=== PATIENT | male | born 1955 | race Caucasian/White ===

== ENCOUNTER 2021-03-24 07:02 | Outpatient (REF) | payer BC, SELFPAY ==
[2021-03-24 11:24] LABS: Estimated Average Glucose 160 mg/dL; Hemoglobin A1c % 7.2 %
[2021-03-24 11:52] LABS: Alanine Aminotransferase 15 U/L (0-40); Albumin Level 4.5 g/dL (3.5-5.0); Alkaline Phosphatase 62 U/L (39-117); Anion Gap 13 (12-20); Aspartate Amino Transferase 15 U/L (5-37); Bilirubin Total 0.4 mg/dL (0.0-1.0); Blood Urea Nitrogen 16 mg/dL (9-16); Calcium 9.4 mg/dL (8.4-10.2); Carbon Dioxide 23 mmol/L (22-29); Chloride 106 mmol/L (96-108); Cholesterol 167 mg/dL; Estimated Glomerular Filt Rate > 60; Glucose Fasting 166 mg/dL (60-99); HDL Cholesterol 58 mg/dL; LDL Cholesterol Calculated 98 mg/dl; Potassium 4.2 mmol/L (3.3-5.1); Sodium 138 mmol/L (135-145); Total Protein 6.6 g/dL (6.5-8.0); Triglycerides 57 mg/dL
[2021-03-24 12:17] LABS: Prostate Specific Antigen Scr 1.77 ng/mL (<0.05-4.0); TSH reflex Free T4 0.62 uIU/mL (0.32-4.0)
== END 2021-03-24 07:03 | disposition home or self-care (01) ==
LOC: HO.WFDLDS 07:02
PROVIDERS: Visit Provider Nurse Practitioner Family
DX: Z12.5 Encounter for screening for malignant neoplasm of prostate (principal); E11.9 Type 2 diabetes mellitus without complications
CPT/HCPCS: 36415; 80053; 80061; 83036; 84153; 84443

== ENCOUNTER 2021-11-14 07:05 | Outpatient (REF) | payer BC, SELFPAY ==
[2021-11-14 11:43] LABS: Appearance Urine CLEAR; Color Urine YELLOW; Glucose Urine UA NEG (NEG); Leukocyte Esterase Urine NEG (NEG); Nitrite Urine NEG (NEG); Specific Gravity - Urine <= 1.005 (1.005-1.025); Urine Blood NEG (NEG); Urine Ketones NEG (NEG); Urine Protein NEG (NEG-TRACE)
[2021-11-14 11:49] LABS: Estimated Average Glucose 200 mg/dL; Hemoglobin A1c % 8.6 %
[2021-11-14 12:10] LABS: Alanine Aminotransferase 16 U/L (0-40); Albumin Level 4.5 g/dL (3.5-5.0); Alkaline Phosphatase 65 U/L (39-117); Anion Gap 14 (12-20); Aspartate Amino Transferase 17 U/L (5-37); Bilirubin Total 0.7 mg/dL (0.0-1.0); Blood Urea Nitrogen 11 mg/dL (9-16); Calcium 9.4 mg/dL (8.4-10.2); Carbon Dioxide 24 mmol/L (22-29); Chloride 101 mmol/L (96-108); Cholesterol 176 mg/dL; Estimated Glomerular Filt Rate > 60; Glucose Fasting 181 mg/dL (60-99); HDL Cholesterol 62 mg/dL; LDL Cholesterol Calculated 98 mg/dl; Potassium 4.5 mmol/L (3.3-5.1); Sodium 134 mmol/L (135-145); Total Protein 6.8 g/dL (6.5-8.0); Triglycerides 81 mg/dL
[2021-11-14 12:12] LABS: TSH reflex Free T4 0.61 uIU/mL (0.32-4.0)
[2021-11-14 12:17] LABS: Creatinine Urine 44.81 mg/dL; Microalbumin Urine < 5.0 mg/L
== END 2021-11-14 07:06 | disposition home or self-care (01) ==
LOC: HO.WFDLDS 07:05
PROVIDERS: Visit Provider Nurse Practitioner Family
DX: Z00.00 Encounter for general adult medical examination without abnormal findings (principal); E11.9 Type 2 diabetes mellitus without complications
CPT/HCPCS: 36415; 80053; 80061; 81003; 82043; 83036; 84443

== ENCOUNTER 2022-05-19 07:16 | Outpatient (REF) | payer BC, SELFPAY ==
[2022-05-19 11:44] LABS: Appearance Urine CLEAR; Color Urine YELLOW; Glucose Urine UA NEG (NEG); Leukocyte Esterase Urine NEG (NEG); Nitrite Urine NEG (NEG); Urine Blood NEG (NEG); Urine Ketones NEG (NEG); Urine Protein NEG (NEG-TRACE)
[2022-05-19 11:58] LABS: Estimated Average Glucose 157 mg/dL; Hemoglobin A1c % 7.1 %
[2022-05-19 12:07] LABS: Alanine Aminotransferase 13 U/L (0-40); Albumin Level 4.6 g/dL (3.5-5.0); Alkaline Phosphatase 60 U/L (39-117); Anion Gap 15 (12-20); Aspartate Amino Transferase 14 U/L (5-37); Bilirubin Total 0.5 mg/dL (0.0-1.0); Blood Urea Nitrogen 11 mg/dL (9-16); Calcium 9.4 mg/dL (8.4-10.2); Carbon Dioxide 25 mmol/L (22-29); Chloride 101 mmol/L (96-108); Cholesterol 170 mg/dL; Estimated Glomerular Filt Rate > 60; Glucose Fasting 213 mg/dL (60-99); HDL Cholesterol 72 mg/dL; LDL Cholesterol Calculated 82 mg/dl; Potassium 4.3 mmol/L (3.3-5.1); Sodium 137 mmol/L (135-145); Triglycerides 83 mg/dL
[2022-05-19 12:27] LABS: Prostate Specific Antigen Scr 1.73 ng/mL (<0.05-4.0); TSH reflex Free T4 0.59 uIU/mL (0.32-4.0)
== END 2022-05-19 07:17 | disposition home or self-care (01) ==
LOC: HO.WFDLDS 07:16
PROVIDERS: Visit Provider Nurse Practitioner Family
DX: E11.9 Type 2 diabetes mellitus without complications (principal); Z12.5 Encounter for screening for malignant neoplasm of prostate
CPT/HCPCS: 36415; 80053; 80061; 81003; 83036; 84153; 84443

== ENCOUNTER 2023-02-26 07:03 | Outpatient (REF) | payer BC, SELFPAY ==
[2023-02-26 11:21] LABS: MANUAL DIFF FLAG NO
[2023-02-26 12:02] LABS: Basophils Percent Auto 0.8 % (0-2); Eosinophils Absolute Auto 0.1 X10*3/uL (0.0-0.4); Eosinophils Percent Auto 2.4 % (0-4); Hemoglobin 13.5 g/dl (14.0-18.0); Imm Gran Abs Auto 0.02 X10*3/uL (0.00-0.03); Imm Gran Pct Auto 0.4 % (0.0-0.4); Lymphocytes Percent Auto 19.9 % (20-40); Mean Corpuscular HGB Conc 32.9 g/dl (31.0-36.0); Mean Corpuscular Hemoglobin 28.4 pg (27.0-33.0); Mean Corpuscular Volume 86.1 fL (80.0-98.0); Mean Platelet Volume 11.9 fL (9.4-12.4); Monocytes Absolute Auto 0.4 X10*3/uL (0.1-1.2); Monocytes Percent Auto 8.7 % (2-11); Neutrophils Absolute Auto 3.4 x10*3/uL (2.0-8.3); Neutrophils Percent Auto 67.8 % (45-73); Platelet Count 278 X10*3/uL (160-400); Red Blood Count 4.76 X10*6/uL (4.60-5.80); Red Cell Distribution Width 12.9 % (11.0-16.0); White Blood Count 5.1 X10*3/uL (4.8-10.8)
[2023-02-26 12:19] LABS: Estimated Average Glucose 186 mg/dL; Hemoglobin A1c % 8.1 %
[2023-02-26 13:02] LABS: Alanine Aminotransferase 11 U/L (0-40); Albumin Level 4.6 g/dL (3.5-5.0); Alkaline Phosphatase 69 U/L (39-117); Anion Gap 14 (12-20); Aspartate Amino Transferase 15 U/L (5-37); Bilirubin Total 0.5 mg/dL (0.0-1.0); Blood Urea Nitrogen 14 mg/dL (9-16); Calcium 9.6 mg/dL (8.4-10.2); Carbon Dioxide 26 mmol/L (22-29); Chloride 102 mmol/L (96-108); Cholesterol 181 mg/dL; Estimated Glomerular Filt Rate > 60; Glucose Fasting 167 mg/dL (60-99); HDL Cholesterol 63 mg/dL; LDL Cholesterol Calculated 105 mg/dl; Potassium 4.5 mmol/L (3.3-5.1); Sodium 137 mmol/L (135-145); Total Protein 6.9 g/dL (6.5-8.0); Triglycerides 65 mg/dL
[2023-02-26 13:04] LABS: TSH reflex Free T4 0.69 uIU/mL (0.32-4.0)
== END 2023-02-26 07:04 | disposition home or self-care (01) ==
LOC: HO.WFDLDS 07:03
PROVIDERS: Visit Provider Nurse Practitioner Family
DX: E11.9 Type 2 diabetes mellitus without complications (principal)
CPT/HCPCS: 36415; 80053; 80061; 83036; 84443; 85025

== ENCOUNTER 2023-03-10 10:59 | Outpatient (REF) | payer MEDICARE, SELFPAY ==
[2023-03-10 13:55] LABS: MANUAL DIFF FLAG NO
[2023-03-10 14:01] LABS: Appearance Urine Clear; Color Urine Yellow; Glucose Urine UA >=1000 mg/dL (Negative); Leukocyte Esterase Urine Negative (Negative); Nitrite Urine Negative (Negative); Specific Gravity - Urine >= 1.030 (1.005-1.025); UMIC TRIGGER UACC YES; Urine Blood Negative (Negative); Urine Ketones Trace mg/dL (Negative); Urine Protein Negative (Neg-Trace)
[2023-03-10 14:04] LABS: Bacteria Urine None Seen (None Seen); Hyaline Casts Urine 0-2 /LPF (0-2); RBC Urine 0-2 /HPF (0-2); Squamous Epithelial Cell Urine 0-2 /HPF (0-2); WBC Urine 0-5 /HPF (0-5)
[2023-03-10 14:24] LABS: Basophils Percent Auto 0.4 % (0-2); Eosinophils Absolute Auto 0.1 X10*3/uL (0.0-0.4); Eosinophils Percent Auto 0.6 % (0-4); Hematocrit 42.3 % (42.0-52.0); Imm Gran Abs Auto 0.13 X10*3/uL (0.00-0.03); Imm Gran Pct Auto 1.4 % (0.0-0.4); Immature Retic Fraction 9.4 % (2.3-13.4); Lymphocytes Percent Auto 10.7 % (20-40); Mean Corpuscular HGB Conc 33.1 g/dl (31.0-36.0); Mean Corpuscular Hemoglobin 27.7 pg (27.0-33.0); Mean Corpuscular Volume 83.8 fL (80.0-98.0); Mean Platelet Volume 11.4 fL (9.4-12.4); Monocytes Absolute Auto 0.7 X10*3/uL (0.1-1.2); Monocytes Percent Auto 7.6 % (2-11); Neutrophils Absolute Auto 7.5 x10*3/uL (2.0-8.3); Neutrophils Percent Auto 79.3 % (45-73); Platelet Count 335 X10*3/uL (160-400); Red Blood Count 5.05 X10*6/uL (4.60-5.80); Retic HGB Equivalent 34.7 pg (30.0-35.0); Reticulocyte Percent 1.4 % (0.5-1.8); White Blood Count 9.4 X10*3/uL (4.8-10.8)
[2023-03-10 15:12] LABS: Creatinine Urine 107.78 mg/dL; Microalbum/Creatinine Ratio Ur 15.7 ug/mg cr
[2023-03-10 15:16] LABS: Iron 117 mcg/dL (45-160); Percent Iron Saturation 35 % (15-50); Total Iron Binding Capacity 336 mcg/dL (228-428); Unsaturated Iron Binding 219 ug/dL
[2023-03-10 15:40] LABS: Ferritin 174 ng/mL (20-250); Folate 16.3 ng/mL (> or = 4.0); Vitamin B12 347 pg/mL (200-900)
[2023-03-11 12:57] LABS: Erythropoietin (EPO) 4.2 mIU/mL (2.6-18.5)
== END 2023-03-10 11:00 | disposition home or self-care (01) ==
LOC: HO.HMGCLDS 10:59
PROVIDERS: PCP Nurse Practitioner Family; Visit Provider Nurse Practitioner Family
DX: E11.9 Type 2 diabetes mellitus without complications (principal); D64.9 Anemia, unspecified
CPT/HCPCS: 36415; 81001; 81003; 82043; 82607; 82668; 82728; 82746; 83540; 85025; 85045

== ENCOUNTER 2023-04-15 08:29 | Outpatient (REF) | payer MEDICARE, SELFPAY ==
--- NOTE | ~2023-04-15 | MR_ITS ---
EXAMINATION: MR CERVICAL SPINE WITHOUT CONTRAST CLINICAL INFORMATION: Radiculopathy, cervical region. COMPARISON: None available. TECHNIQUE: MRI of the cervical spine was performed using routine sequences without contrast. FINDINGS: There is reversal of the normal cervical lordosis. Moderate disc height loss is seen at C5-C6 and C6-C7. The vertebral body heights are preserved. There is a prominent hemangioma at T2. Chronic opposing endplate Schmorl's nodes are seen at the C6-C7 level. The cervical cord signal appears normal. The imaged intracranial contents and extraspinal soft tissues appear normal. SPINAL LEVELS: C2-C3: No posterior disc abnormality. Moderate to severe left facet arthropathy. No spinal canal stenosis. Mild left neural foraminal stenosis. C3-C4: Mild disc bulging with mild to moderate facet arthropathy. Mild right and moderate left neural foraminal stenosis. No spinal canal stenosis. C4-C5: No posterior disc abnormality. No spinal canal or neural foraminal stenosis. C5-C6: Disc osteophyte complex with uncovertebral hypertrophy resulting in moderate spinal canal stenosis and severe bilateral neural foraminal stenosis. C6-C7: Disc bulging with uncovertebral hypertrophy resulting in mild spinal canal stenosis and moderate to severe left and mild right neural foraminal stenosis. C7-T1: No posterior disc abnormality. No spinal canal or neural foraminal stenosis. MR/MR cervical spine wo con IMPRESSION: Multilevel degenerative spondylosis most advanced at C5-C6 where there is moderate spinal canal stenosis and severe bilateral neural foraminal stenosis. Neural foraminal stenosis appears moderate on the left at C3-C4 and moderate to severe on the left at C6-C7.
== END 2023-04-15 08:30 | disposition home or self-care (01) ==
LOC: HO.MRI 08:29
PROVIDERS: PCP Nurse Practitioner Family; Visit Provider Nurse Practitioner Family
DX: M54.12 Radiculopathy, cervical region (principal)
CPT/HCPCS: 72141

== ENCOUNTER → 2023-05-20 09:55 | Outpatient (BNVA) | payer MEDICARE, SELFPAY | PROVIDERS: PCP Nurse Practitioner Family; Visit Provider Physician Assistant | DX: M54.12 Radiculopathy, cervical region (principal) | CPT/HCPCS: 99202 ==

== ENCOUNTER 2023-07-19 07:00 | Outpatient (RCR) | payer MEDICARE, SELFPAY ==
[2023-06-07 07:04] VITALS: BP 142/80; PULSE 83; O2SAT 98
--- NOTE | 2023-06-07 15:56 | MHC.PT.EP ---
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 Pt expressed initially was seen in the emergency department and later by walk-in provider 03/21 and then his PCP Kp Ortez NP. Pt's PCP referred him to the [facility]. Pt had MRI on 04/15/23 and was seen for consult [facility] on 05/20/23. Pt expressing since onset sx in the R UE have somewhat improved (initially reports sx were so severe he was forced to sleeping in his recliner) continues to express decreased tolerance for sitting, moving R UE with report of radicular sx radiating to his R hand, digits 1-3 consistent with C5/C6 C6/C7 distribution. Pt exhibits decreased cervical AROM, (+) cervical quadrant testing, mildly impaired strength R shoulder ER. Pt expressing he has worsening sx with sitting postures. MRI MR/MR cervical spine wo c IMPRESSION: Multilevel degenerative spondylosis most advanced at C5-C6 where there is moderate spinal canal stenosis and severe bilateral neural foraminal stenosis. Neural foraminal stenosis appears moderate on the left at C3-C4 and moderate to severe on the left at C6-C7. Dictated By:TORY POLANCO MD Signed By:<Electronically signed by TORY POLANCO MD in OV>04/15/23 1156 Pt is an excellent rehab candidate for PT. Pt denies history of prior neck surgery, denies having any form of injections in the past. Pt PMH significant for HTN, DMII, anemia. Pt demonstrated a positive response to trial of manual C-tx (+) cervical quadrant testing, post initial evaluation this date and will be seen in the office 2x/weekly with treatment including, postural ther-ex/activity, manual therapy, taping/postural support strapping, TA, cervical traction, self-care/education and HEP. Post manual traction trial, pt expressed centralization of R UE sx from the hand to the height of his lateral shoulder. Upon sitting after completion of traction, R UE returned shortly afterwards . Pt was then trialed with a gentle ROCKTAPE application for (postural support/stretch with education goals/application/removal) which appeared effective early on in reducing and managing his sx. Pt was educated re: goals of therapy, findings of eval/exam, anatomy of the C/S, and goals of centralization/strengthening his postural musculature to manage his sx. Frequency and Duration: The patient will be seen 2x/week x 4 weeks Short Term Goals: 1. Centralize R UE sx to the height of lateral shoulder. 2. Reduce neck pain by 25%. 3. Improve cervical rotation by 20 degrees L>R. 4. Initiate home program/ self care for management of cervical radiculopathy/postural program. Alf Goals: 1. I HEP. 2. Restore functional mobility to the C/S without sx radiating UE/persicap sx. 3. Strength R UE 5/5 all planes. 4. Resume sleeping all positions MOD I. 5. Lift carry 15# in R UE with no surge of R UE sx. Treatment Plan: Modalities to reduce pain, spasms and effusion. Manual therapy to restore motion and function. Therapeutic exercise to improve strength and flexibility. Neuromuscular re-education for posture and balance. Therapeutic activities to return to functional activities of daily living. Electronically signed by: Becky Landaverde, PT, DPT Please sign and return to therapist. Thank you for your referral.
--- NOTE | 2023-06-14 07:28 | MHC.PT.EP ---
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 Pt expressed initially was seen in the emergency department and later by walk-in provider 03/21 and then his PCP Kp Ortez NP. Pt's PCP referred him to the [facility]. Pt had MRI on 04/15/23 and was seen for consult [facility] on 05/20/23. Pt expressing since onset sx in the R UE have somewhat improved (initially reports sx were so severe he was forced to sleeping in his recliner) continues to express decreased tolerance for sitting, moving R UE with report of radicular sx radiating to his R hand, digits 1-3 consistent with C5/C6 C6/C7 distribution. Pt exhibits decreased cervical AROM, (+) cervical quadrant testing, mildly impaired strength R shoulder ER. Pt expressing he has worsening sx with sitting postures. MRI MR/MR cervical spine wo c IMPRESSION: Multilevel degenerative spondylosis most advanced at C5-C6 where there is moderate spinal canal stenosis and severe bilateral neural foraminal stenosis. Neural foraminal stenosis appears moderate on the left at C3-C4 and moderate to severe on the left at C6-C7. Dictated By:TORY POLANCO MD Signed By:<Electronically signed by TORY POLANCO MD in OV>04/15/23 1156 Pt is an excellent rehab candidate for PT. Pt denies history of prior neck surgery, denies having any form of injections in the past. Pt PMH significant for HTN, DMII, anemia. Pt demonstrated a positive response to trial of manual C-tx (+) cervical quadrant testing, post initial evaluation this date and will be seen in the office 2x/weekly with treatment including, postural ther-ex/activity, manual therapy, taping/postural support strapping, TA, cervical traction, self-care/education and HEP. Post manual traction trial, pt expressed centralization of R UE sx from the hand to the height of his lateral shoulder. Upon sitting after completion of traction, R UE returned shortly afterwards . Pt was then trialed with a gentle ROCKTAPE application for (postural support/stretch with education goals/application/removal) which appeared effective early on in reducing and managing his sx. Pt was educated re: goals of therapy, findings of eval/exam, anatomy of the C/S, and goals of centralization/strengthening his postural musculature to manage his sx. Frequency and Duration: The patient will be seen 2x/week x 4 weeks Short Term Goals: 1. Centralize R UE sx to the height of lateral shoulder. 2. Reduce neck pain by 25%. 3. Improve cervical rotation by 20 degrees L>R. 4. Initiate home program/ self care for management of cervical radiculopathy/postural program. Mcfp Goals: 1. I HEP. 2. Restore functional mobility to the C/S without sx radiating UE/persicap sx. 3. Strength R UE 5/5 all planes. 4. Resume sleeping all positions MOD I. 5. Lift carry 15# in R UE with no surge of R UE sx. Treatment Plan: Modalities to reduce pain, spasms and effusion. Manual therapy to restore motion and function. Therapeutic exercise to improve strength and flexibility. Neuromuscular re-education for posture and balance. Therapeutic activities to return to functional activities of daily living. Electronically signed by: Becky Landaverde, PT, DPT Please sign and return to therapist. Thank you for your referral.
--- NOTE | 2023-07-16 09:35 | MHC.PT.RE ---
[facility] [place] Office [place] Office [place] Office [address] Camron Mathews 140 [facility] [phone] F: [phone] F: [phone] F: [phone] F: [phone] Physical Therapy Re-evaluation Diagnosis: Cervical radiculopathy: PT eval and treat; Jens Figueroa PA-C, date of referral 05/20/23 ([facility]) Date of Surgery: Date of Evaluation: 06/07/23 Treatments to Date: Cancellations to Date: No Shows to Date: Subjective: I feel like my symptoms are leveling out. I still get the pain in my forearm and after last session my neck was sore for a few days (had increased from 20 minutes of traction to 25) Pain Score: Pain Location: Objective Measures: Cervical flexion AROM: 38 degrees, cervical extension 45 degrees, L cervical rotation 68 degrees, R cervical rotation 72 degrees, L SB 24 degrees, R SB 12 degrees (sx present down forearm) [facility] [address] [place] [address] [address] [place] [address] [facility] Visit Report Signed Patient: Alejandro Perez RMR#: [id number] : [id number]:[id number] Age/Sex: 67 / MADM/SER Date: 05/20/23 Loc: HO.HNSADM/SER Time:954 Attending Provider: Jens MAY cc: Kp OrtezP-~ Intake Intake Visit Reasons: Spinal stenosis Intake Note: Mr. Perez is here today c/o neck pain. MRI done @ [facility]. 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 He is a very nice 67-year-old gentleman who experienced acute onset of neck discomfort initial in the left side that eventually went to the right side started going down his arm into his thumb, index and middle finger sometime in early January in February. It was quite intense in the beginning, he went to the emergency room and then to the walk-in clinic in [place]. Was placed on steroids, Tylenol, tramadol, anti-inflammatories along the way. The pain seems to have her side is somewhat but he still having pain down into his right arm. He has not yet done any physical therapy. He has not had any cortisone shots. He is here today to see us with an MRI showing degenerative disc disease with foraminal narrowing. PMH: He is diabetic his last A1c was 8.1, hypertension, anemia Social hx: He does not smoke Medications: Diltiazem, lisinopril, meloxicam, metformin, pioglitazone, rosuvastatin, tramadol Allergies: None Physical exam: He is awake alert oriented, maybe has some mild right hand weakness but otherwise strength and reflexes are normal. Imaging review: Cervical MRI done at [place] shows multilevel degenerative disc disease with basically 2 degenerative discs at C5-6 and C6-7. At C5-6 there is bilateral moderate to severe foraminal narrowing. At C6-7 the report suggests there some left C6-7 foraminal narrowing but I think it is fairly mild. No cord compression. Impression: 67-year-old male presents with what sounds like a right C6 radiculopathy secondary to the degenerative disc disease and foraminal stenosis at C5-6. He has started conservative treatment, but will need dedicated 6 weeks of physical therapy before we can consider any surgical discussion. I will send him for physical therapy, I would like to re-evaluate him in about 3 months. Most of the time these symptoms will go away on their own, but if after PT he is no better I will discuss with Dr. Jeffery about if the patient is a candidate for anterior cervical diskectomy and fusion. Thank you for allowing us to care for your patient. The total time spent with this visit with this patient was 45 minutes reviewing history, physical exam, cervical spine imaging review, and implementation of treatment plan or further diagnostic testing Jens Jeffery MD,PhD [facility] Orders: Orders PT Evaluation and Treatment Today M54.12 - Radiculopathy, cervical region Coding Level of Care Code New Pt Level 4 (23455) Diagnoses Cervical radiculopathy M54.12 Documented By:Jens Figueroa05/20/23 1045 Signed By:<Electronically signed by Jens Figueroa>05/20/23 1120 Assessment: 07/16/23: Pt expresses increased soreness at site of C/S with increase in traction time last session (we had increased hold time from 20 minutes to 25 minutes). Alejandro has expressed reduction in the frequency and intensity of his radiating R UE sx overall since start of care. He continues to express presence of sx with seated positions (such as driving >15 minutes) radiating in general consistently to his forearm, less often to his thumb and pointer finger. He states he is now able to sleep on his back and no longer has radiating periscap sx. He expresses overall 75% gain in his sx since starting and has improved his cervical ROM. He has begun to plateau in presence/relief/centralization with the traction. He expresses scheduled appt to see his PCP Kp Ortez week of 08/01/23 and has a follow up with Mr. Henry PA-C at [facility] end of July. Pt has expressed some gains with PT. He is now able to sleep in supine with improvement. He has immediate relief of sx with active change in position of his shoulder> abd 90. 07/09/12: Pt has attended 10 session of PT to date expressing about 75% improvement in radiating R UE sx. Pt has demonstrated improvement in AROM of C/S and centralization of R UE radiating sx with intensity and frequency reported. Pt has a follow up with PCP on 08/04/23 and with specialist physician on 08/22/23. Pt would benefit from an additional 6 visits of PT to address impairments, implement HEP of periscap and cervical musculature, to further centralize R UE sx. Pt continues to express presence of R UE radiating sx with prolonged walking, sitting and driving mainly to height of forearm with occasional sx to 1-2 digits. He has been expressing a positive response to cervical traction treatment at a frequency of 2x/week; and I am recommending continued treatment for three additional weeks beyond his initial authorization to address ongoing STG/LTG see updates below. Pt was trialed with standing rows with 5# weight which triggered radiating sx. He is now able to find positions which improve his sx such as shoulder ER/abd and L cervical sidebending. Please see updated ROM measurements to support improvement/functional advancements. He is now able to dress and raise his UE without trigger of R UE radiating sx. He has expressed majority of sx radiating to forearm with thumb and pointer finger. 07/05/23: Pt expressing improved tolerance for sitting posture with reduction in sx verbalized. 07/02/23 Pt expressing improved tolerance for sitting/driving positions. 06/28/23;Positive response to introduction of standing corner/doorway stretch. Some relief of neck pain verbalized post traction. Pt reports yesterday sx surged with sitting, encouraged trial of lumbar roll behind his back for sitting , improve postural awareness. 06/25/23: Pt expressing greatest relief with positional traction. Some mild discomfort initially reported with attempt of SL ER, improved post adjustment of the C/S. 06/28/23;Positive response to introduction of standing corner/doorway stretch. Some relief of neck pain verbalized post traction. Pt reports yesterday sx surged with sitting, encouraged trial of lumbar roll behind his back for sitting , improve postural awareness. 06/21/23: Poor tolerance for pec minor stretch this date (increased R scapular sx). Positive response for C-tx with centralization of sx noted. 06/18/23: Pt expressing centralization of sx in the height of R wrist, improve tolerance for band work in standing position vs supine. Completed traction 18# pressure. Added standing ER with RTB for HEP program. 06/14/23: Good tolerance for postural therex with bands added, reports mild sx into the wrist this am. Increased traction hold to 20 minutes with positive response. Pt expressing positive response to the taping- pt requests it again today. Issued RTB for home program. 06/10/23: Pt expressing positive response to early taping trial. Pt expressing some slight reduction in cervical traction treatment with a trial this date. Pt had to leave 7:45 am for work. Pt to be progressed in postural strengthening next session. Issue R UT/levator scap stretches next session. 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 Pt expressed initially was seen in the emergency department and later by walk-in provider 03/21 and then his PCP Kp Ortez NP. Pt's PCP referred him to the [facility]. Pt had MRI on 04/15/23 and was seen for consult [facility] on 05/20/23. Pt expressing since onset sx in the R UE have somewhat improved (initially reports sx were so severe he was forced to sleeping in his recliner) continues to express decreased tolerance for sitting, moving R UE with report of radicular sx radiating to his R hand, digits 1-3 consistent with C5/C6 C6/C7 distribution. Pt exhibits decreased cervical AROM, (+) cervical quadrant testing, mildly impaired strength R shoulder ER. Pt expressing he has worsening sx with sitting postures. MRI MR/MR cervical spine wo c IMPRESSION: Multilevel degenerative spondylosis most advanced at C5-C6 where there is moderate spinal canal stenosis and severe bilateral neural foraminal stenosis. Neural foraminal stenosis appears moderate on the left at C3-C4 and moderate to severe on the left at C6-C7. Dictated By:TORY POLANCO MD Signed By:<Electronically signed by TORY POLANCO MD in OV>04/15/23 1156 Pt is an excellent rehab candidate for PT. Pt denies history of prior neck surgery, denies having any form of injections in the past. Pt PMH significant for HTN, DMII, anemia. Pt demonstrated a positive response to trial of manual C-tx (+) cervical quadrant testing, post initial evaluation this date and will be seen in the office 2x/weekly with treatment including, postural ther-ex/activity, manual therapy, taping/postural support strapping, TA, cervical traction, self-care/education and HEP. Post manual traction trial, pt expressed centralization of R UE sx from the hand to the height of his lateral shoulder. Upon sitting after completion of traction, R UE returned shortly afterwards . Pt was then trialed with a gentle ROCKTAPE application for (postural support/stretch with education goals/application/removal) which appeared effective early on in reducing and managing his sx. Pt was educated re: goals of therapy, findings of eval/exam, anatomy of the C/S, and goals of centralization/strengthening his postural musculature to manage his sx. Short Term Goals: 1. Centralize R UE sx to the height of lateral shoulder. (07/09: Sx intensity frequency length improved, less than a few times per day). 2. Reduce neck pain by 25%. (MET) 3. Improve cervical rotation by 20 degrees L>R. (MET) 4. Initiate home program/ self care for management of cervical radiculopathy/postural program. (MET) Intermediate Goals: 1. I HEP. 2. Restore functional mobility to the C/S without sx radiating UE/persicap sx. 3. Strength R UE 5/5 all planes. (07/09: Continues to work on, sx triggered with standing row, etc) 4. Resume sleeping all positions MOD I. (MET) 5. Lift carry 15# in R UE with no surge of R UE sx. (improving sx) Frequency and Duration: The patient will be seen 2x/week x 4 weeks Treatment Plan: Therapeutic Exercise Dynamic Therapeutic Activities Neuromuscular Re-ed Manual Therapies Joint Mobilization Taping Gait Home Exercise Program Patient Education Electrical Stimulation Iontophoresis Mechanical Traction Hot or Cold Pack Other Reviewed/ Agreed with Student Documentation: Therapist: Electronically signed by: Please sign and return to therapist. Thank you for your referral.
== END 2023-11-16 11:01 | disposition home or self-care (01) ==
LOC: HO.PTWFD 07:00
PROVIDERS: PCP Nurse Practitioner Family; Visit Provider Physician Assistant
DX: M54.12 Radiculopathy, cervical region (principal)
CPT/HCPCS: 97012; 97110; 97140; 97161; 97162; 97164; 97535

== ENCOUNTER 2023-08-04 08:57 | Outpatient (AMB) | payer MEDICARE, SELFPAY ==
--- NOTE | 2023-08-04 09:03 | MHC.PC.OV ---
Vital Signs 08/04/23 09:04 08/04/23 09:29 Height 5 ft 11 in Weight 200 lb BMI 27.9 BP 158/96 H 142/76 H Blood Pressure Location Lt brachial Rt brachial Position Sitting Sitting Pulse 63 Pulse Source Pulse Oximeter Pulse Oximetry (%) 98 Oxygen Delivery Method Room Air Intake Visit Reasons: Annual PE Allergies No Known Allergies Allergy (Verified 08/04/23 09:06) Tobacco use date assessed: 08/04/23 Fall risk assessment: No Falls in past year Last assessed Fall Risk: 08/04/23 Dental Screening Dental Screen Date: 08/04/23 Did you have a dental visit in the last 12 months?: Yes Did you have a dental problem in the last 6 months where you did not have access to dental care?: No Was dental information given to patient?: Patient has dentist HPI Annual PE HPI Details Pt is here for a PE. Labs have been ordered, encouraged pt to have these drawn. Refuses any colon screen of any type. Due for PSA (refuses TEAGAN), will order. Denies dribbling with urination, weak stream, and nocturia. Pt is a diabetic, on an BACILIO and a statin. Last A1C was 8.1, due for repeat. Microalbumin is up to date. Denies polyuria, polydipsia, and neuropathy. Pt denies any signs and symptoms of hypoglycemia and does know how to correct it. Pt reports that his blood sugar yesterday was 153. Eye exam is up to date. HTN: Blood pressure is elevated today. Pt reports intermittently checking his blood pressure at home though he does not remember any readings. Will have pt continue to monitor BP at home (girlfriend/ takes BP) and call me if it is high (above 140/90). Denies chest pain, shortness of breath, headache, dizziness, and blurred vision. Refuses pneumonia vaccines. [facility] Surgical History History of cataract surgery Family History Father COPD (chronic obstructive pulmonary disease) Mother Cancer Brother Liver cancer Sister Breast cancer Son No problems noted. Daughter No problems noted. Social History Housing: Other Patient Tobacco Use Status: Never used Tobacco e-Cigarette/Vaping Use: Never Used Second Hand Smoke Exposure: No service: No Current occupational status: retired Cognitive needs: No Hearing needs: No Vision needs: No Questionnaire Thrive Questionnaire Date Thrive assessed: 03/18/22 SAMANTHA-7 AMB Questionnaire SAMANTHA-7 Date SAMANTHA - 7 assessed: 03/18/22 Source: Developed by Drs. Gonzalo Calvillo, Taty Dang, Rich Cherry and colleagues, with an educational brittany from [employer]. Review of Systems Const Denies chills and Denies fever(s) Eyes Denies blurry vision ENT Denies vertigo, Denies dizziness and Denies sore throat Card Denies chest pain at rest, Denies chest pain with activity, Denies diaphoresis, Denies dyspnea and Denies dyspnea on exertion Resp Denies cough, Denies dyspnea, Denies dyspnea on exertion and Denies wheezing GI Denies abdominal pain, Denies melena, Denies hematochezia, Denies constipation, Denies diarrhea and Denies loose stools Denies hematuria Musc Denies numbness and Denies tingling Skin/Breast Denies lesions Neuro Denies vertigo, Denies dizziness, Denies numbness and Denies tingling Psych Denies anxiety, Denies depression, Denies homicidal ideation, Denies suicidal ideation and Denies other (substance abuse) Aller/Immun Denies wheezing Physical exam (Primary Care) Vital Signs: Last Vital Signs Pulse 63 08/04/23 09:04 BP 142/76 H 08/04/23 09:29 Pulse Ox 98 08/04/23 09:04 Oxygen Delivery Method Room Air 08/04/23 09:04 BMI result Body Mass Index 27.9 Tobacco/Smoking Status: Tobacco use Status Tobacco use date assessed 08/04/23 08/04/23 09:09 Patient Tobacco Use Status Never used Tobacco 08/04/23 09:09 e-Cigarette/Vaping Use Never Used 08/04/23 09:09 Thrive Assessment: Date of Thrive Assessment Date Thrive assessed 03/18/22 08/04/23 09:09 Const General: cooperative Nutritional Appearance: well nourished Orientation/consciousness: patient oriented x3 HENMT Head: Yes normal to inspection, Yes normocephalic and Yes atraumatic Ears: TM's normal bilaterally Eyes General: appearance normal, both eyes and all related structures Alignment and Position: alignment normal and position normal Neck Neck: Yes normal visual inspection and Yes no lymphadenopathy Thyroid: Thyroid normal Resp Effort & Inspection: normal respiratory effort Auscultation: clear to auscultation bilaterally Cardio Rate: regular rate Rhythm: regular rhythm Heart sounds: S1 normal heart sound present, S2 normal heart sound present and no murmurs GI Palpation (GI): Soft to palpation and nontender Auscultation: normal bowel sounds Other: refused TEAGAN Male General Exam: Yes normal external exam Penis: normal penis Scrotum: scrotum normal, testes descended bilaterally and no inguinal hernias Testes: no testicular mass Skin Rashes: no rashes Neuro General: patient oriented x3, moves all extremities, no focal motor deficits and deep tendon reflexes 2+ bilaterally Romberg Test: Negative Extrem Other: bilat feet: + sensation with use of monofilament, feet intact without lesions Psych Appearance: grossly normal Mental Status: mental status grossly normal Speech and movement: Normal speech and movement present Affect: normal affect Attitude: cooperative Thought process: Normal thought process present Thought content: Normal thought content present Insight: Good insight present (Psych) Judgement: Good judgement present (Psych) Assessment and Plan Assessment & Plan (1) Diabetes: Code(s): E11.9 - Type 2 diabetes mellitus without complications (2) Physical exam: Code(s): Z00.00 - Encounter for general adult medical examination without abnormal findings Plan The patient agreed to the use of a medical records library professor for this encounter. Scribed for JOSE Simms by Janny Vega medical records library professor, on 08/04/2023 at 09:15 EST. Coding Level of Care Code Est Pt Prev Care >65y(51587) Diagnoses Diabetes E11.9 Physical exam Z00.00
[2023-08-04 09:04] VITALS: BP 158/96; PULSE 63; O2SAT 98; BMI 27.9
[2023-08-04 09:29] VITALS: BP 142/76
== END 2023-08-04 09:53 | disposition home or self-care (01) ==
PROVIDERS: Visit Provider Nurse Practitioner Family
DX: E11.9 Type 2 diabetes mellitus without complications (principal); Z00.00 Encounter for general adult medical examination without abnormal findings
CPT/HCPCS: 99397

== ENCOUNTER 2023-08-27 13:36 | Outpatient (AMB) | payer MEDICARE, SELFPAY ==
--- NOTE | 2023-08-27 13:42 | A.SPINEOV_ITS ---
Intake Intake Visit Reasons: 3 month f/u after PT Intake Note: Mr. Perez is here today for his 3 month follow after PT. Lead Web Developer Required: No Allergies No Known Allergies Allergy (Verified 08/04/23 09:06) Assessment & Plan Assessment & Plan (1) Cervical radiculopathy: Comment: Alejandro comes in today for a follow-up appointment after seeing YADIRA Figueroa regarding a right-sided C6 radiculopathy. To recap Mr. Perez has moderate-severe degenerative disc disease most predominant between C5-6 and C6-7 as seen on MRI completed at [place]. His symptoms are almost entirely in the right upper extremity affecting his right arm causing numbness in the upper and lower portion of his left extremity, with some associated weakness in the index finger and thumb. He also endorses fairly significant posterior neck pain that is both on the right and left side, without any radiation to the left side. YADIRA Figueroa previously sent Alejandro to physical therapy and want him to follow-up today to recap his progress with physical therapy. Unfortunately he has had very little progress since going to physical therapy and feels that although he did have some minor relief from the stretching exercises, he finds himself today in the same position that he was in last time he was seen in our office. After extensive discussion Alejandro reported that he would prefer not to have surgery if he can avoid it. He brought up the possibility of cortisone injections, and we discussed having him referred to pain management for TFE injection. Alejandro was referred to Dr. Jensen at [facility] [place]. He was encouraged to call our office in the future if he decides to reconsider a surgical solution for his radiculopathy. Total amount of time spent in this visit was 20 minutes in discussion of symptoms, MRI cervical spine imaging results and subsequent plan of care / pain management referral. Erick Jeffery MD,PhD [facility] Code(s): M54.12 - Radiculopathy, cervical region Orders: Referrals Pain Management Referral M54.12 - Radiculopathy, cervical region Coding Level of Care Code Est Pt Level 3 (74265) Diagnoses Cervical radiculopathy M54.12
== END 2023-08-27 13:53 | disposition home or self-care (01) ==
PROVIDERS: PCP Nurse Practitioner Family; Visit Provider Physician Assistant
DX: M54.12 Radiculopathy, cervical region (principal)
CPT/HCPCS: 99213

== ENCOUNTER → 2023-08-27 13:36 | Outpatient (BNVA) | payer MEDICARE, SELFPAY | PROVIDERS: PCP Nurse Practitioner Family; Visit Provider Physician Assistant | DX: M54.12 Radiculopathy, cervical region (principal) | CPT/HCPCS: 99212 ==

== ENCOUNTER 2023-09-24 10:04 | Outpatient (AMB) | payer MEDICARE, SELFPAY ==
[2023-09-24 10:12] VITALS: BP 171/86; PULSE 68; RESP 14; O2SAT 99; BMI 27.6
--- NOTE | 2023-09-24 10:12 | A.OFFVIS_ITS ---
Intake Vital Signs 09/24/23 10:12 Height 5 ft 11 in Weight 198 lb BMI 27.6 BP 171/86 H Blood Pressure Location Rt brachial Position Sitting Respiration 14 Pulse 68 Pulse Source Pulse Oximeter Pulse Oximetry (%) 99 Oxygen Delivery Method Room Air Intake Visit Reasons: Radiculopathy, Cervical Region/confirmed Allergies No Known Allergies Allergy (Verified 09/24/23 10:13) Medication List - Last Reconciled 09/24/23 by Angelina Manzanares LPN alcohol swabs 1 pad topical BID 60 days blood sugar diagnostic ([employer] Ultra Test strips) Use to check blood sugar twice daily: once fasting in am and random during day blood-glucose meter ([employer] Ultra2 Meter) Use to check blood sugar twice daily: once fasting in am and random during day diltiazem HCl (Cartia XT) 240 mg PO DAILY lancets ([employer] Delica Lancets) Use to check blood sugar twice daily: once fasting in am and random during day lisinopril 40 mg PO DAILY 90 days meloxicam 15 mg PO DAILY PRN 14 days metformin 1,000 mg PO BID 90 days pioglitazone 30 mg PO DAILY 90 days rosuvastatin 5 mg PO DAILY vitamin B complex (B Complex-Vitamin B12 tablet) 1 tab PO DAILY HPI Radiculopathy, Cervical Region/confirmed HPI Details 68-year-old male who presents today to t he office for a cervical radiculopathy. The patient reports posterior neck pain bilaterally. His symptoms are localized in the right upper extremity, affecting his right arm and causing numbness in the upper and lower portions of his left extremity, with some associated weakness in the index finger and thumb. He rates his pain at 8/10 in intensity. He states that after physical therapy, his pain got constant at 4-5/10 in intensity and has not improved beyond that point despite six months of PT. He states that his initial neck discomfort was on the left side that eventually went to the right side and radiates down his arm into his thumb, index finger, and middle finger, which started about six months ago. He was seen in the walk- in clinic and was placed on steroids, Tylenol, tramadol, and anti-inflammatory medications with minimal benefit. He has not had any cortisone shots. [facility] Surgical History History of cataract surgery Family History Father COPD (chronic obstructive pulmonary disease) Mother Cancer Brother Liver cancer Sister Breast cancer Son No problems noted. Daughter No problems noted. Social History Housing: Other Patient Tobacco Use Status: Never used Tobacco e-Cigarette/Vaping Use: Never Used Second Hand Smoke Exposure: No service: No Current occupational status: retired Cognitive needs: No Hearing needs: No Vision needs: No Review of Systems Const All systems reviewed & are unremarkable except as noted in HPI and below Physical Exam Vital Signs: Last Vital Signs Pulse 68 09/24/23 10:12 Resp 14 09/24/23 10:12 BP 171/86 H 09/24/23 10:12 Pulse Ox 99 09/24/23 10:12 Oxygen Delivery Method Room Air 09/24/23 10:12 BMI result Body Mass Index 27.6 General: Appears afebrile. Alert and oriented. Mood and affect appropriate. Follows and participates in conversation appropriately. Respiratory effort is unlabored. Able to transition from sit to stand unassisted. Ambulates with bilaterally normal heel strike and toe off. Results Reviewed Results Reviewed: 04/15/23: MR CERVICAL SPINE WITHOUT CONTRAST FINDINGS: There is reversal of the normal cervical lordosis. Moderate disc height loss is seen at C5-C6 and C6-C7. The vertebral body heights are preserved. There is a prominent hemangioma at T2. Chronic opposing endplate Schmorl's nodes are seen at the C6-C7 level. The cervical cord signal appears normal. The imaged intracranial contents and extraspinal soft tissues appear normal. SPINAL LEVELS: C2-C3: No posterior disc abnormality. Moderate to severe left facet arthropathy. No spinal canal stenosis. Mild left neural foraminal stenosis. C3-C4: Mild disc bulging with mild to moderate facet arthropathy. Mild right and moderate left neural foraminal stenosis. No spinal canal stenosis. C4-C5: No posterior disc abnormality. No spinal canal or neural foraminal stenosis. C5-C6: Disc osteophyte complex with uncovertebral hypertrophy resulting in mod erate spinal canal stenosis and severe bilateral neural foraminal stenosis. C6-C7: Disc bulging with uncovertebral hypertrophy resulting in mild spinal canal stenosis and moderate to severe left and mild right neural foraminal stenosis. C7-T1: No posterior disc abnormality. No spinal canal or neural foraminal stenosis. IMPRESSION: Multilevel degenerative spondylosis most advanced at C5-C6 where there is moderate spinal canal stenosis and severe bilateral neural foraminal stenosis. Neural foraminal stenosis appears moderate on the left at C3-C4 and moderate to severe on the left at C6-C7. Assessment & Plan Assessment & Plan (1) Cervical radiculopathy: Code(s): M54.12 - Radiculopathy, cervical region Plan Will schedule him for right parasagittal interlaminar GERRY at C7-T1. Discussed the risks and benefits of the procedure with the patient in detail. All questions were answered. The patient is on board with the plan. The patient will continue to perform exercises and he will need to monitor glucose level following the injection. Justification for interventional therapy: ? Patient with average pain > 6/10 ? Patient has exhausted conservative therapy including PT, Tylenol, NSAIDs, tramadol Scribed for Dr. Jensen by Jaden Wilkinson, medical office assistant, on 09/24/2023. I, Dr. Jensen, have personally reviewed and agree with the information entered by the scribe. Coding Level of Care Code New Pt Level 3 (39268) Diagnoses Cervical radiculopathy M54.12
== END 2023-09-24 10:32 | disposition home or self-care (01) ==
PROVIDERS: PCP Nurse Practitioner Family; Visit Provider Internal Medicine
DX: M54.12 Radiculopathy, cervical region (principal)
CPT/HCPCS: 99203

== ENCOUNTER → 2023-09-24 10:04 | Outpatient (BNVA) | payer MEDICARE, SELFPAY | PROVIDERS: PCP Nurse Practitioner Family; Visit Provider Internal Medicine | DX: M54.12 Radiculopathy, cervical region (principal) | CPT/HCPCS: 99202 ==

== ENCOUNTER 2023-10-20 06:00 | Outpatient (REF) | payer MEDICARE, SELFPAY ==
--- NOTE | ~2023-10-20 | FL_ITS ---
EXAMINATION: XR FLUOROSCOPY WITH IMAGES CLINICAL INFORMATION: Radiculopathy, cervical region. COMPARISON: None available. TECHNIQUE: Fluoroscopy Supervised By: Dr. Fabricio Jensen. Fluoroscopy Time: 0.5 minutes. Cumulative Dose: 10.0 mGy. DAP: 0.530 Gycm2. Images: 3. FINDINGS: Images demonstrate needle placement and contrast injection in the right lower cervical spine FL/FL guidance in treatment room IMPRESSION: Fluoroscopy guidance for pain management procedure
== END 2023-10-20 06:01 | disposition home or self-care (01) ==
LOC: CF 06:00
PROVIDERS: Visit Provider Internal Medicine
DX: M54.12 Radiculopathy, cervical region (principal)
CPT/HCPCS: 62321; J1100; J2795; Q9967

== ENCOUNTER 2023-10-20 08:58 | Outpatient (AMB) | payer MEDICARE, SELFPAY ==
--- NOTE | 2023-10-20 09:06 | A.OFFVIS_ITS ---
Intake Vital Signs 10/20/23 09:07 10/20/23 10:15 Height 5 ft 11 in 5 ft 11 in Weight 198 lb 198 lb BMI 27.6 27.6 BP 130/70 142/72 H Blood Pressure Location Lt brachial Lt brachial Position Sitting Sitting Respiration 18 16 Pulse 73 80 Pulse Source Pulse Oximeter Pulse Oximeter Pulse Oximetry (%) 97 98 Oxygen Delivery Method Room Air Room Air Comment Pre-Op Post-Op Intake Visit Reasons: right C7-T1 parasagittal interlaminar GERRY Allergies No Known Allergies Allergy (Verified 09/24/23 10:13) HPI right C7-T1 parasagittal interlaminar GERRY HPI Details Patient presents for scheduled procedure. Denies any recent cough, cold, infection, fever or other significant changes in medical history since last office visit. [facility] Surgical History History of cataract surgery Family History Father COPD (chronic obstructive pulmonary disease) Mother Cancer Brother Liver cancer Sister Breast cancer Son No problems noted. Daughter No problems noted. Housing: Other Patient Tobacco Use Status: Never used Tobacco e-Cigarette/Vaping Use: Never Used Second Hand Smoke Exposure: No service: No Current occupational status: retired Cognitive needs: No Hearing needs: No Vision needs: No Physical Exam Vital Signs: Last Vital Signs Pulse 80 10/20/23 10:15 Resp 16 10/20/23 10:15 BP 142/72 H 10/20/23 10:15 Pulse Ox 98 10/20/23 10:15 Oxygen Delivery Method Room Air 10/20/23 10:15 BMI result Body Mass Index 27.6 Office Procedures Joint Injection/Drain Joint Injection/Drain Details: Interlaminar epidural steroid injection, C7-T1, right parasaggital After obtaining written consent, pre-procedure blood pressure and heart rate we re stable and recorded in the nursing record. The patient was placed in the prone position. The cervicothoracic area was widely prepped with chloraprep and draped in sterile fashion. Fluoroscopic jamie dance was used to identify the desired interlaminar space and for needle placement. Subcutaneous 0.5% lidocaine was used to anesthetize the skin overlying the target. A 20-gauge Singh needle was advanced to the epidural space using loss of resistance to saline technique under fluoroscopic AP and contralateral oblique views. There was no evidence of heme or CSF and no paresthesias were elicited with needle placement. Confirmation of epidural needle placement was performed with 1cc of omnipaque 180. Next 3 ml 0.5% lidocaine mixed with 10 mg dexamethasone was administered epidurally with no pain elicited on injection. The needle tract tubing was then cleared with 1 ml of 0.5% lidocaine. The needle was removed, skin cleansed and a sterile bandage was applied. The patient tolerated the procedure well and no complications were encountered. Following the procedure the patient's vital signs were stable. The patient was discharged home in good condition with post-procedural instructions. Time Out: Immediately prior to the procedure, the following was verbally confirmed that there is a signed consent form and that the correct patient, planned procedure, site and side are consistent with documentation and that necessary equipment and/or blood products are available prior to the start of the case. Complications: none EBL: <5 cc Coding 35712 - Cervical Epidural/Interlaminar with fluoroscopy Procedure code (CPT) selection complete Assessment & Plan Assessment & Plan (1) Cervical radiculopathy: Code(s): M54.12 - Radiculopathy, cervical region Plan Patient is status post C7-T1 right parasagittal interlaminar GERRY. Patient tolerated procedure well and was discharged home in stable condition with discharge instructions. All questions were answered. We will follow-up via telephone or in clinic to assess response to therapy. A follow-up appointment was made during today's visit. Orders: Orders FL guidance in treatment room Today M54.12 - Radiculopathy, cervical region Coding Level of Care Code Procedure Only Diagnoses Cervical radiculopathy M54.12 CPT Codes Coding - Joint 10: 91048 - Cervical Epidural/Interlaminar with fluoroscopy ([id number])
[2023-10-20 09:07] VITALS: BP 130/70; PULSE 73; RESP 18; O2SAT 97; BMI 27.6
[2023-10-20 10:15] VITALS: BP 142/72; PULSE 80; RESP 16; O2SAT 98; BMI 27.6
== END 2023-10-20 10:13 | disposition home or self-care (01) ==
LOC: HO.PMCPRC 08:58
PROVIDERS: PCP Nurse Practitioner Family; Visit Provider Internal Medicine
DX: M54.12 Radiculopathy, cervical region (principal)
CPT/HCPCS: 62321

== ENCOUNTER 2023-11-19 08:12 | Outpatient (AMB) | payer MEDICARE, SELFPAY ==
--- NOTE | 2023-11-19 08:18 | A.OFFVIS_ITS ---
Intake Vital Signs 11/19/23 08:19 Height 5 ft 11 in Weight 201 lb BMI 28.0 Blood Pressure Location Lt brachial Position Sitting Respiration 12 Pulse 66 Pulse Source Pulse Oximeter Pulse Oximetry (%) 98 Oxygen Delivery Method Room Air Intake Visit Reasons: s/p right C7-T1 interlaminar GERRY/lvm Allergies No Known Allergies Allergy (Verified 11/19/23 08:20) Medication List - Last Reconciled 11/19/23 by Angelina Manzanares LPN alcohol swabs 1 pad topical BID 60 days blood sugar diagnostic ([employer] Ultra Test strips) Use to check blood sugar twice daily: once fasting in am and random during day blood-glucose meter ([employer] Ultra2 Meter) Use to check blood sugar twice daily: once fasting in am and random during day diltiazem HCl (Cartia XT) 240 mg PO DAILY lancets ([employer] Delica Lancets) Use to check blood sugar twice daily: once fasting in am and random during day lisinopril 40 mg PO DAILY 90 days meloxicam 15 mg PO DAILY PRN 14 days metformin 1,000 mg PO BID 90 days pioglitazone 30 mg PO DAILY 90 days rosuvastatin 5 mg PO DAILY vitamin B complex (B Complex-Vitamin B12 tablet) 1 tab PO DAILY HPI s/p right C7-T1 interlaminar GERRY/lvm HPI Details 68-year-old male who presents today to t he office for a status post right C7-T1 interlaminar GERRY. The patient reports 40-50% relief following the procedure. Although he feels the injection was not very helpful, he does not report significant symptoms anymore.. He reports a tolerable level of neck pain that does not radiate down to the shoulder or arms. He is able to lift heavy weights. He states that the pain is not limiting his daily work. He denies any headache or concentration issues. He denies any sleep issues. He has no difficulty driving, reading, or doing recreational activities. 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 Past procedure: 10/20/2023: Interlaminar epidural steroi d injection, C7-T1, right parasaggital: 40-50% relief. [facility] Surgical History History of cataract surgery Family History Father COPD (chronic obstructive pulmonary disease) Mother Cancer Brother Liver cancer Sister Breast cancer Son No problems noted. Daughter No problems noted. Social History Housing: Other Patient Tobacco Use Status: Never used Tobacco e-Cigarette/Vaping Use: Never Used Second Hand Smoke Exposure: No service: No Current occupational status: retired Cognitive needs: No Hearing needs: No Vision needs: No Review of Systems Const All systems reviewed & are unremarkable except as noted in HPI and below Physical Exam Vital Signs: Last Vital Signs Pulse 66 11/19/23 08:19 Resp 12 11/19/23 08:19 Pulse Ox 98 11/19/23 08:19 Oxygen Delivery Method Room Air 11/19/23 08:19 BMI result Body Mass Index 28.0 General: Appears afebrile. Alert and oriented. Mood and affect appropriate. Follows and participates in conversation appropriately. Respiratory effort is unlabored. Able to transition from sit to stand unassisted. Ambulates with bilaterally normal heel strike and toe off. Cervical extension reproduces pain in the midline. Cervical facet loading is positive on the right. Cervical facet loading is mildly positive on the left. Results Reviewed Results Reviewed: No imaging is available for review. Assessment & Plan Assessment & Plan (1) Cervical radiculopathy: Code(s): M54.12 - Radiculopathy, cervical region (2) Cervical arthritis: Code(s): M47.812 - Spondylosis without myelopathy or radiculopathy, cervical region Plan Pain symptoms are relatively well controlled at this time. The patient would like to monitor his symptoms, and if they get worse again, we can potentially e ither repeat an epidural steroid injection for radicular symptoms or a trial of diagnostic medial branch blocks for pain secondary to cervical facet syndrome. Scribed for Dr. Jensen by Jaden Wilkinson, medical staff credentialing coordinator, on 11/19/2023. I, Dr. Jensen, have personally reviewed and agree with the information entered by the scribe. Coding Level of Care Code Est Pt Level 3 (56665) Diagnoses Cervical radiculopathy M54.12 Cervical arthritis M47.812
[2023-11-19 08:19] VITALS: PULSE 66; RESP 12; O2SAT 98; BMI 28.0
== END 2023-11-19 08:43 | disposition home or self-care (01) ==
PROVIDERS: PCP Nurse Practitioner Family; Visit Provider Internal Medicine
DX: M54.12 Radiculopathy, cervical region (principal); M47.812 Spondylosis without myelopathy or radiculopathy, cervical region
CPT/HCPCS: 99213

== ENCOUNTER → 2023-11-19 08:12 | Outpatient (BNVA) | payer MEDICARE, SELFPAY | PROVIDERS: PCP Nurse Practitioner Family; Visit Provider Internal Medicine | DX: M54.12 Radiculopathy, cervical region (principal); M47.812 Spondylosis without myelopathy or radiculopathy, cervical region | CPT/HCPCS: 99212 ==

== ENCOUNTER 2023-12-08 08:33 | Outpatient (AMB) | payer MEDICARE, SELFPAY ==
--- NOTE | 2023-12-08 08:37 | A.OFFPC_ITS ---
Vital Signs 12/08/23 08:39 Weight 203 lb BP 112/64 Blood Pressure Location Rt brachial Position Sitting Pulse 79 Pulse Source Pulse Oximeter Pulse Oximetry (%) 97 Oxygen Delivery Method Room Air Intake Visit Reasons: 4 month fu Intake Note: Patient here for diabetes f/u. Pt states they have been in the 200s in the mornings. Allergies No Known Allergies Allergy (Verified 12/08/23 08:40) Medication List - Last Reconciled 12/08/23 by JOSE Estrada alcohol swabs 1 pad topical BID 60 days blood sugar diagnostic (AirPRTouch Ultra Test strips) Use to check blood sugar twice daily: once fasting in am and random during day blood-glucose meter (AirPRTouch Ultra2 Meter) Use to check blood sugar twice daily: once fasting in am and random during day diltiazem HCl (Cartia XT) 240 mg PO DAILY lancets (AirPRTouch Delica Lancets) Use to check blood sugar twice daily: once fasting in am and random during day lisinopril 40 mg PO DAILY 90 days meloxicam 15 mg PO DAILY PRN 14 days metformin 1,000 mg PO BID 90 days pioglitazone 30 mg PO DAILY 90 days rosuvastatin 5 mg PO DAILY semaglutide (Ozempic) 0.25 mg (0.368 mL) subcut QWEEK vitamin B complex (B Complex-Vitamin B12 tablet) 1 tab PO DAILY Tobacco use date assessed: 12/08/23 Fall risk assessment: No Falls in past year Last assessed Fall Risk: 12/08/23 Dental Screening Dental Screen Date: 12/08/23 Did you have a dental visit in the last 12 months?: Yes Did you have a dental problem in the last 6 months where you did not have access to dental care?: No Was dental information given to patient?: Patient has dentist HPI 4 month fu HPI Details Pt is a diabetic, on an BACILIO and a statin. A1C in office today is 9.3. Microalbumin is up to date. Denies polyuria, polydipsia, and neuropathy. Pt denies any signs and symptoms of hypoglycemia and does know how to correct it. Pt reports that his blood sugar this morning was 254, it's always high in the morning. Will start ozempic 0.25mg. Refuses all vaccines. Eye exam is up to date. [facility] Surgical History History of cataract surgery Family History Father COPD (chronic obstructive pulmonary disease) Mother Cancer Brother Liver cancer Sister Breast cancer Son No problems noted. Daughter No problems noted. Social History Housing: Other Patient Tobacco Use Status: Never used Tobacco e-Cigarette/Vaping Use: Never Used Second Hand Smoke Exposure: No service: No Current occupational status: retired Cognitive needs: No Hearing needs: No Vision needs: No Questionnaire PHQ-9 Over the last 2 weeks, how often have you been bothered by any of the following problems? 1. Little interest or pleasure in doing things: not at all 2. Feeling down, depressed, or hopeless: not at all 3. Trouble falling or staying asleep, or sleeping too much: not at all 4. Feeling tired or having little energy: not at all 5. Poor appetite or overeating: not at all 6. Feeling bad about yourself - or that you are a failure or have let yourself or your family down: not at all 7. Trouble concentrating on things, such as reading the newspaper or watching television: not at all 8. Moving or speaking so slowly that other people could have noticed. Or the opposite - being so fidgety or restless that you have been moving around a lot more than usual: not at all 9. Thoughts that you would be better off or of hurting yourself in some way: not at all Total score: 0 Depression Screening Interpretation: Negative Depression Screening Done: Yes 65841 - PHQ-9 Billing: Yes Source: Developed by Drs. Gonzalo Calvillo, Taty Dang, Rich Cherry and colleagues, with an educational brittany from [employer]. Thrive Questionnaire Date Thrive assessed: 12/08/23 I am a: Patient What is your living situation today?: I have a steady place to live Within the past 12 months, did the food you bought not last and you didn't have the money to get more?: Never true Within the past 12 months, did you worry whether your food would run out before you got money to buy more?: Never true Do you have trouble paying for medicines?: No Do you have trouble getting transportation to medical appointments?: No Do you have trouble paying your heating and electricity bill?: No Do you have trouble taking care of your child, family member or friend?: No Do you have trouble with day-to-day activities such as bathing, preparing meals, shopping, managing finances, etc.?: No Are you currently unemployed and looking for a job?: No Are you interested in more education?: No SAMANTHA-7 AMB Questionnaire SAMANTHA-7 Date SAMANTHA - 7 assessed: 12/08/23 Source: Developed by Drs. Gonzalo Calvillo, Taty Dang, Rich Cherry and colleagues, with an educational brittany from [employer]. SAMANTHA-7 Assessment Billing SAMANTHA-7 Assessment Tool: pt declined-do not bill Review of Systems Const Reports as per HPI Physical exam (Primary Care) Vital Signs: Last Vital Signs Pulse 79 12/08/23 08:39 BP 112/64 12/08/23 08:39 Pulse Ox 97 12/08/23 08:39 Oxygen Delivery Method Room Air 12/08/23 08:39 Tobacco/Smoking Status: Tobacco use Status Tobacco use date assessed 12/08/23 12/08/23 08:42 Patient Tobacco Use Status Never used Tobacco 12/08/23 08:39 e-Cigarette/Vaping Use Never Used 12/08/23 08:39 Depression Screening Interpretation: Negative Thrive Assessment: Date of Thrive Assessment Date Thrive assessed 03/18/22 12/08/23 08:39 Const General: cooperative Orientation/consciousness: patient oriented x3 Resp Effort & Inspection: normal respiratory effort Auscultation: clear to auscultation bilaterally Cardio Rate: regular rate Rhythm: regular rhythm Heart sounds: S1 normal heart sound present and S2 normal heart sound present Neuro General: patient oriented x3 Extrem Other: bilat feet: + sensation with use of monofilament Psych Appearance: grossly normal Mental Status: mental status grossly normal Speech and movement: Normal speech and movement present Affect: normal affect Attitude: cooperative Thought process: Normal thought process present Thought content: Normal thought content present Insight: Good insight present (Psych) Judgement: Good judgement present (Psych) Results AMB Hemoglobin A1c AMB Hemoglobin A1c 9.3 % Last Edit by SHAGUFTA Barnett on 12/08/23 09 :11 Results Reviewed Results Reviewed: Laboratory Last Values Hgb A1c (Clinic) 9.3 % (4.0-6.0) H 12/08/23 09:10 Assessment and Plan Assessment & Plan (1) Diabetes: Code(s): E11.9 - Type 2 diabetes mellitus without complications Plan The patient agreed to the use of a medical equipment technician for this encounter. Scribed for JOSE Simms by Janny Vega medical equipment technician, on 12/08/2023 at 08:45 EST. Orders: Orders AMB Hemoglobin A1c Today E11.9 - Type 2 diabetes mellitus without complications Medications: New semaglutide (Ozempic) for 4 weeks 0.25 mg (0.368 mL) subcut QWEEK 3 mL 0RF Coding Level of Care Code Est Pt Level 3 (48523) Diagnoses Diabetes E11.9
[2023-12-08 08:39] VITALS: BP 112/64; PULSE 79; O2SAT 97
== END 2023-12-08 09:05 | disposition home or self-care (01) ==
PROVIDERS: PCP Nurse Practitioner Family; Visit Provider Nurse Practitioner Family
DX: E11.9 Type 2 diabetes mellitus without complications (principal)
CPT/HCPCS: 83036; 99213

== ENCOUNTER 2024-02-23 07:04 | Outpatient (REF) | payer MEDICARE, SELFPAY ==
[2024-02-23 11:34] LABS: Appearance Urine Clear; Color Urine Dark Yellow; Glucose Urine UA Negative (Negative); Leukocyte Esterase Urine Negative (Negative); Nitrite Urine Negative (Negative); Specific Gravity - Urine 1.015 (1.005-1.025); Urine Blood Negative (Negative); Urine Ketones Negative (Negative); Urine Protein Negative (Neg-Trace)
[2024-02-23 11:46] LABS: MANUAL DIFF FLAG NO
[2024-02-23 11:49] LABS: Basophils Percent Auto 0.7 % (0-2); Eosinophils Absolute Auto 0.1 X10*3/uL (0.0-0.4); Eosinophils Percent Auto 1.6 % (0-4); Hematocrit 37.7 % (42.0-52.0); Hemoglobin 12.6 g/dl (14.0-18.0); Imm Gran Abs Auto 0.01 X10*3/uL (0.00-0.03); Imm Gran Pct Auto 0.2 % (0.0-0.4); Lymphocytes Absolute Auto 0.8 X10*3/uL (1.2-4.9); Lymphocytes Percent Auto 17.8 % (20-40); Mean Corpuscular HGB Conc 33.4 g/dl (31.0-36.0); Mean Corpuscular Hemoglobin 28.8 pg (27.0-33.0); Mean Corpuscular Volume 86.1 fL (80.0-98.0); Monocytes Absolute Auto 0.4 X10*3/uL (0.1-1.2); Monocytes Percent Auto 8.7 % (2-11); Neutrophils Absolute Auto 3.1 x10*3/uL (2.0-8.3); Platelet Count 216 X10*3/uL (160-400); Red Blood Count 4.38 X10*6/uL (4.60-5.80); Red Cell Distribution Width 13.3 % (11.0-16.0); White Blood Count 4.4 X10*3/uL (4.8-10.8)
[2024-02-23 11:54] LABS: Estimated Average Glucose 163 mg/dL; Hemoglobin A1c % 7.3 % (<6.0)
[2024-02-23 12:08] LABS: Alanine Aminotransferase 14 U/L (0-40); Albumin Level 4.5 g/dL (3.5-5.0); Alkaline Phosphatase 51 U/L (39-117); Anion Gap 11 (12-20); Aspartate Amino Transferase 19 U/L (5-37); Bilirubin Total 0.5 mg/dL (0.0-1.0); Blood Urea Nitrogen 15 mg/dL (9-16); Calcium 9.7 mg/dL (8.4-10.2); Carbon Dioxide 24 mmol/L (22-29); Chloride 104 mmol/L (96-108); Cholesterol 131 mg/dL (<200); Estimated Glomerular Filt Rate > 60; Glucose Fasting 150 mg/dL (60-99); HDL Cholesterol 71 mg/dL (>40); LDL Cholesterol Calculated 51 mg/dL (<100); Potassium 4.1 mmol/L (3.3-5.1); Sodium 135 mmol/L (135-145); Triglycerides 47 mg/dL (<150)
[2024-02-23 12:25] LABS: TSH reflex Free T4 0.75 uIU/mL (0.32-4.0)
== END 2024-02-23 07:05 | disposition home or self-care (01) ==
LOC: HO.WFDLDS 07:04
PROVIDERS: Visit Provider Nurse Practitioner Family
DX: E11.9 Type 2 diabetes mellitus without complications (principal); D64.9 Anemia, unspecified; Z12.5 Encounter for screening for malignant neoplasm of prostate
CPT/HCPCS: 36415; 80053; 80061; 81003; 83036; 84153; 84443; 85025

== ENCOUNTER 2024-03-08 07:05 | Outpatient (REF) | payer MEDICARE, SELFPAY ==
[2024-03-08 11:50] LABS: MANUAL DIFF FLAG NO
[2024-03-08 12:05] LABS: Basophils Percent Auto 0.5 % (0-2); Eosinophils Absolute Auto 0.1 X10*3/uL (0.0-0.4); Eosinophils Percent Auto 1.1 % (0-4); Hematocrit 39.3 % (42.0-52.0); Imm Gran Abs Auto 0.02 X10*3/uL (0.00-0.03); Imm Gran Pct Auto 0.3 % (0.0-0.4); Immature Retic Fraction 14.1 % (2.3-13.4); Lymphocytes Absolute Auto 0.5 X10*3/uL (1.2-4.9); Lymphocytes Percent Auto 8.4 % (20-40); Mean Corpuscular HGB Conc 33.1 g/dl (31.0-36.0); Mean Corpuscular Hemoglobin 28.6 pg (27.0-33.0); Mean Corpuscular Volume 86.4 fL (80.0-98.0); Mean Platelet Volume 12.9 fL (9.4-12.4); Monocytes Absolute Auto 0.6 X10*3/uL (0.1-1.2); Monocytes Percent Auto 8.6 % (2-11); Neutrophils Absolute Auto 5.2 x10*3/uL (2.0-8.3); Neutrophils Percent Auto 81.1 % (45-73); Platelet Count 213 X10*3/uL (160-400); Red Blood Count 4.55 X10*6/uL (4.60-5.80); Red Cell Distribution Width 13.4 % (11.0-16.0); Retic HGB Equivalent 33.4 pg (30.0-35.0); Reticulocyte Percent 1.2 % (0.5-1.8); Reticulocytes Absolute 0.052 X10*6/uL (0.026-0.095); White Blood Count 6.4 X10*3/uL (4.8-10.8)
[2024-03-08 12:38] LABS: Iron 69 mcg/dL (45-160); Percent Iron Saturation 21 % (15-50); Total Iron Binding Capacity 335 mcg/dL (228-428); Unsaturated Iron Binding 266 ug/dL
[2024-03-08 12:55] LABS: Ferritin 107 ng/mL (20-250)
[2024-03-08 13:53] LABS: Folate 15.3 ng/mL (> or = 4.0)
[2024-03-08 19:56] LABS: Vitamin B12 345 pg/mL (200-900)
[2024-03-09 14:59] LABS: Hematocrit 39.4 % (38.5-50.0); Hemoglobin 12.7 g/dL (13.2-17.1); MCH 28.1 pg (27.0-33.0); MCV 87.2 fL (80.0-100.0); RBC 4.52 Million/uL (4.20-5.80); RDW 12.9 % (11.0-15.0)
== END 2024-03-08 07:06 | disposition home or self-care (01) ==
LOC: HO.WFDLDS 07:05
PROVIDERS: Visit Provider Nurse Practitioner Family
DX: D64.9 Anemia, unspecified (principal)
CPT/HCPCS: 36415; 82607; 82728; 82746; 83020; 83540; 85014; 85018; 85025; 85041; 85045

== ENCOUNTER 2024-04-26 07:41 | Outpatient (AMB) | payer MEDICARE, SELFPAY ==
[2024-04-26 07:45] VITALS: BP 150/80; PULSE 64; O2SAT 97; BMI 27.5
--- NOTE | 2024-04-26 07:45 | A.OFFPC_ITS ---
Vital Signs 04/26/24 07:45 Height 5 ft 11 in Weight 197 lb BMI 27.5 BP 150/80 H Blood Pressure Location Lt brachial Position Sitting Pulse 64 Pulse Source Pulse Oximeter Pulse Oximetry (%) 97 Oxygen Delivery Method Room Air Intake Visit Reasons: rescheduled appt from 04/12/2024 Intake Note: Pt is here today to f/u labs Allergies No Known Allergies Allergy (Verified 04/26/24 07:57) Medication List - Last Reconciled 04/26/24 by JOSE Estraad alcohol swabs 1 pad topical BID 60 days blood sugar diagnostic ([employer] Ultra Test strips) Use to check blood sugar twice daily: once fasting in am and random during day blood-glucose meter ([employer] Ultra2 Meter) Use to check blood sugar twice daily: once fasting in am and random during day diltiazem HCl CD (Cartia XT) 240 mg PO DAILY lancets ([employer] MicrosystemsTouch Delica Lancets) Use to check blood sugar twice daily: once fasting in am and random during day lisinopril 40 mg PO DAILY 90 days meloxicam 15 mg PO DAILY PRN 14 days metformin 1,000 mg PO BID 90 days pioglitazone 30 mg PO DAILY 90 days rosuvastatin 5 mg PO DAILY vitamin B complex (B Complex-Vitamin B12 tablet) 1 tab PO DAILY Tobacco use date assessed: 04/26/24 Fall risk assessment: No Falls in past year Last assessed Fall Risk: 04/26/24 Dental Screening Dental Screen Date: 04/26/24 Did you have a dental visit in the last 12 months?: Yes Did you have a dental problem in the last 6 months where you did not have access to dental care?: No Was dental information given to patient?: Patient has dentist HPI rescheduled appt from 04/12/2024 HPI Details Pt is a diabetic, on an BACILIO and a statin. Last A1C was 7.3. Due for microalbumin, will order. Denies polyuria, polydipsia, and neuropathy. Pt denies any signs and symptoms of hypoglycemia and does know how to correct it. Sent SGLT-Is and GLP-1 agonist, all too expensive according to pt. He did recently stop eating as many sweets. Will recheck A1c at the end of next month (when due) [facility] Surgical History History of cataract surgery Family History Father COPD (chronic obstructive pulmonary disease) Mother Cancer Brother Liver cancer Sister Breast cancer Son No problems noted. Daughter No problems noted. Social History Housing: Other Patient Tobacco Use Status: Never used Tobacco e-Cigarette/Vaping Use: Never Used Second Hand Smoke Exposure: No service: No Current occupational status: retired Cognitive needs: No Hearing needs: No Vision needs: No Questionnaire PHQ-9 Over the last 2 weeks, how often have you been bothered by any of the following problems? 64693 - PHQ-9 Billing: Patient declined-do not bill Source: Developed by Drs. Gonzalo Calvillo, Taty Dang, Rich Cherry and colleagues, with an educational brittany from [employer]. Thrive Questionnaire Date Thrive assessed: 12/08/23 SAMANTHA-7 AMB Questionnaire SAMANTHA-7 Date SAMANTHA - 7 assessed: 12/08/23 Source: Developed by Drs. Gonzalo Calvillo, Taty Dang, Rich Cherry and colleagues, with an educational brittany from [employer]. SAMANTHA-7 Assessment Billing SAMANTHA-7 Assessment Tool: pt declined-do not bill Review of Systems Const Reports as per HPI Physical exam (Primary Care) Vital Signs: Last Vital Signs Pulse 64 04/26/24 07:45 BP 150/80 H 04/26/24 07:45 Pulse Ox 97 04/26/24 07:45 Oxygen Delivery Method Room Air 04/26/24 07:45 BMI result Body Mass Index 27.5 Tobacco/Smoking Status: Tobacco use Status Tobacco use date assessed 04/26/24 04/26/24 07:49 Patient Tobacco Use Status Never used Tobacco 04/26/24 07:49 e-Cigarette/Vaping Use Never Used 04/26/24 07:49 Thrive Assessment: Date of Thrive Assessment Date Thrive assessed 12/08/23 04/26/24 07:49 Const General: cooperative Orientation/consciousness: patient oriented x3 Resp Effort & Inspection: normal respiratory effort Auscultation: clear to auscultation bilaterally Cardio Rate: regular rate Rhythm: regular rhythm Heart sounds: S1 normal heart sound present and S2 normal heart sound present Neuro General: patient oriented x3 Extrem Other: bilat feet: + sensation with use of monofilament, feet intact Psych Appearance: grossly normal Mental Status: mental status grossly normal Speech and movement: Normal speech and movement present Affect: normal affect Attitude: cooperative Thought process: Normal thought process present Thought content: Normal thought content present Insight: Good insight present (Psych) Judgement: Good judgement present (Psych) Assessment and Plan Assessment & Plan (1) Diabetes: Code(s): E11.9 - Type 2 diabetes mellitus without complications Plan: Labs ordered Plan The patient agreed to the use of a medical office clerk for this encounter. Scribed for JOSE Simms by Janny Vega medical office clerk, on 04/26/2024 at 07:55 EST. Orders: Orders Comprehensive [place]. Panel Fast Today E11.9 - Type 2 diabetes mellitus without complications TSH reflex Free T4 Today E11.9 - Type 2 diabetes mellitus without complications UA CC w/rflx Micro + Cult Today E11.9 - Type 2 diabetes mellitus without complications Lipid Panel Today E11.9 - Type 2 diabetes mellitus without complications Microalbumin, Random (w Creat) Today E11.9 - Type 2 diabetes mellitus without complications Complete Blood Count Auto Diff Today E11.9 - Type 2 diabetes mellitus without complications Hemoglobin A1c Today E11.9 - Type 2 diabetes mellitus without complications Coding Level of Care Code Est Pt Level 3 (58770) Diagnoses Diabetes E11.9
== END 2024-04-26 08:11 | disposition home or self-care (01) ==
PROVIDERS: PCP Nurse Practitioner Family; Visit Provider Nurse Practitioner Family
DX: E11.9 Type 2 diabetes mellitus without complications (principal)
CPT/HCPCS: 99213

== ENCOUNTER 2024-06-23 07:32 | Outpatient (REF) | payer MEDICARE, SELFPAY ==
[2024-06-23 11:42] LABS: MANUAL DIFF FLAG NO
[2024-06-23 11:48] LABS: Basophils Percent Auto 0.6 % (0-2); Eosinophils Absolute Auto 0.1 X10*3/uL (0.0-0.4); Eosinophils Percent Auto 1.8 % (0-4); Hematocrit 36.7 % (42.0-52.0); Hemoglobin 12.4 g/dl (14.0-18.0); Imm Gran Abs Auto 0.03 X10*3/uL (0.00-0.03); Imm Gran Pct Auto 0.6 % (0.0-0.4); Lymphocytes Absolute Auto 0.7 X10*3/uL (1.2-4.9); Lymphocytes Percent Auto 13.3 % (20-40); Mean Corpuscular HGB Conc 33.8 g/dl (31.0-36.0); Mean Corpuscular Hemoglobin 29.7 pg (27.0-33.0); Mean Corpuscular Volume 87.8 fL (80.0-98.0); Mean Platelet Volume 12.5 fL (9.4-12.4); Monocytes Absolute Auto 0.5 X10*3/uL (0.1-1.2); Monocytes Percent Auto 9.3 % (2-11); Neutrophils Absolute Auto 3.8 x10*3/uL (2.0-8.3); Neutrophils Percent Auto 74.4 % (45-73); Platelet Count 210 X10*3/uL (160-400); Red Blood Count 4.18 X10*6/uL (4.60-5.80); Red Cell Distribution Width 13.8 % (11.0-16.0); White Blood Count 5.1 X10*3/uL (4.8-10.8)
[2024-06-23 12:04] LABS: Estimated Average Glucose 154 mg/dL
[2024-06-23 12:10] LABS: Alanine Aminotransferase 14 U/L (0-40); Albumin Level 4.5 g/dL (3.5-5.0); Alkaline Phosphatase 47 U/L (39-117); Anion Gap 13 (12-20); Aspartate Amino Transferase 20 U/L (5-37); Bilirubin Total 0.3 mg/dL (0.0-1.0); Blood Urea Nitrogen 18 mg/dL (9-16); Calcium 9.2 mg/dL (8.4-10.2); Carbon Dioxide 23 mmol/L (22-29); Chloride 105 mmol/L (96-108); Cholesterol 122 mg/dL (<200); Estimated Glomerular Filt Rate > 60; Glucose Fasting 146 mg/dL (60-99); HDL Cholesterol 72 mg/dL (>40); LDL Cholesterol Calculated 42 mg/dL (<100); Potassium 3.9 mmol/L (3.3-5.1); Sodium 137 mmol/L (135-145); Total Protein 6.8 g/dL (6.5-8.0); Triglycerides 41 mg/dL (<150)
[2024-06-23 12:26] LABS: TSH reflex Free T4 0.61 uIU/mL (0.32-4.0)
== END 2024-06-23 07:33 | disposition home or self-care (01) ==
LOC: HO.WFDLDS 07:32
PROVIDERS: Visit Provider Nurse Practitioner Family
DX: E11.9 Type 2 diabetes mellitus without complications (principal)
CPT/HCPCS: 36415; 80053; 80061; 83036; 84443; 85025

== ENCOUNTER 2024-08-16 07:39 | Outpatient (AMB) | payer MEDICARE, SELFPAY ==
[2024-08-16 07:46] VITALS: BP 130/80; PULSE 67; O2SAT 98; BMI 27.6
--- NOTE | 2024-08-16 07:46 | MHC.PC.OV ---
Vital Signs 08/16/24 07:46 Height 5 ft 11 in Weight 198 lb BMI 27.6 BP 130/80 Blood Pressure Location Lt brachial Position Sitting Pulse 67 Pulse Source Pulse Oximeter Pulse Oximetry (%) 98 Oxygen Delivery Method Room Air Intake Visit Reasons: PE Intake Note: Pt is here today for his PE Allergies No Known Allergies Allergy (Verified 08/16/24 07:46) Medication List - Last Reconciled 08/16/24 by WILLA Estrada-RODRICK alcohol swabs 1 pad topical BID 60 days blood sugar diagnostic ([employer] Ultra Test strips) Use to check blood sugar twice daily: once fasting in am and random during day blood-glucose meter ([employer] Ultra2 Meter) Use to check blood sugar twice daily: once fasting in am and random during day diltiazem HCl CD (Cartia XT) 240 mg PO DAILY lancets (High[employer]Touch Delica Lancets) Use to check blood sugar twice daily: once fasting in am and random during day lisinopril 40 mg PO DAILY meloxicam 15 mg PO DAILY PRN 14 days metformin 1,000 mg PO BID 90 days pioglitazone 30 mg PO DAILY 90 days rosuvastatin 5 mg PO DAILY vitamin B complex (B Complex-Vitamin B12 tablet) 1 tab PO DAILY Tobacco use date assessed: 08/16/24 Fall risk assessment: No Falls in past year Last assessed Fall Risk: 08/16/24 Dental Screening Dental Screen Date: 08/16/24 Did you have a dental visit in the last 12 months?: Yes Did you have a dental problem in the last 6 months where you did not have access to dental care?: No Was dental information given to patient?: Patient has dentist HPI PE HPI Details Pt is here for a PE. Labs were already performed. Refuses colonoscopy and cologuard. PSA is up to date. Denies dribbling with urination, weak stream, and frequent nocturia. Pt is a diabetic, on an BACILIO and a statin. Last A1C was 7.0. Due for microalbumin, will order. Denies polyuria, polydipsia, and neuropathy. Pt denies any signs and symptoms of hypoglycemia and does know how to correct it. Hx of anemia. Will order labs. Pt has a slightly raised skin lesion to his left upper torso. Will refer to derm.Refuses pneumonia vaccine. He does not want any new meds added to help bring down his sugar. PFSH Surgical History History of cataract surgery Family History Father COPD (chronic obstructive pulmonary disease) Mother Cancer Brother Liver cancer Sister Breast cancer Son No problems noted. Daughter No problems noted. Social History Housing: Other Patient Tobacco Use Status: Never used Tobacco e-Cigarette/Vaping Use: Never Used Second Hand Smoke Exposure: No service: No Current occupational status: retired Cognitive needs: No Hearing needs: No Vision needs: No Questionnaire PHQ-9 Over the last 2 weeks, how often have you been bothered by any of the following problems? 1. Little interest or pleasure in doing things: not at all 2. Feeling down, depressed, or hopeless: not at all 3. Trouble falling or staying asleep, or sleeping too much: not at all 4. Feeling tired or having little energy: not at all 5. Poor appetite or overeating: not at all 6. Feeling bad about yourself - or that you are a failure or have let yourself or your family down: not at all 7. Trouble concentrating on things, such as reading the newspaper or watching television: not at all 8. Moving or speaking so slowly that other people could have noticed. Or the opposite - being so fidgety or restless that you have been moving around a lot more than usual: not at all 9. Thoughts that you would be better off or of hurting yourself in some way: not at all Total score: 0 Depression Screening Interpretation: Negative Depression Screening Done: Yes 38870 - PHQ-9 Billing: Yes Source: Developed by Drs. Gonzalo Calivllo, Taty Dang, Rich Cherry and colleagues, with an educational brittany from [employer]. Thrive Questionnaire Date Thrive assessed: 12/08/23 I am a: Patient What is your living situation today?: I have a steady place to live Within the past 12 months, did the food you bought not last and you didn't have the money to get more?: Never true Within the past 12 months, did you worry whether your food would run out before you got money to buy more?: Never true Do you have trouble paying for medicines?: No Do you have trouble getting transportation to medical appointments?: No Do you have trouble paying your heating and electricity bill?: No Do you have trouble taking care of your child, family member or friend?: No Do you have trouble with day-to-day activities such as bathing, preparing meals, shopping, managing finances, etc.?: No Are you interested in more education?: No Please select the resources that you would like help with: None Currently or been in a relationship where the following occur: I choose not to answer THRIVE Score: 0 AUDIT C Alcohol Use Questionnaire (AUDIT-C) 1. How often do you have a drink containing alcohol?: Monthly or less 2. How many drinks containing alcohol do you have on a typical day when you are drinking?: 3 or 4 3. How often do you have six or more drinks on one occasion?: Never Total Score: 2 SAMANTHA-7 AMB Questionnaire SAMANTHA-7 Date SAMANTHA - 7 assessed: 08/16/24 Feeling nervous, anxious, or on edge: 0 = Not at all Not being able to stop or control worryin = Not at all Worrying too much about different things: 0 = Not at all Trouble relaxin = Not at all Being so restless that it is hard to sit still: 0 = Not at all Becoming easily annoyed or irritable: 0 = Not at all Feeling afraid as if something awful might happen: 0 = Not at all Total SAMANTHA-7 score (0-4 normal; 5-9 mild; 10-14 moderate; 15-21 severe): 0 Source: Developed by Drs. Gonzalo Calvillo, Taty Dang, Rich Cherry and colleagues, with an educational brittany from [employer]. SAMANTHA-7 Assessment Billing SAMANTHA-7 Assessment Tool: SAMANTHA-7 Assessment 34580 Review of Systems Const Denies chills and Denies fever(s) Eyes Denies blurry vision ENT Denies vertigo, Denies dizziness and Denies sore throat Card Denies chest pain at rest, Denies chest pain with activity, Denies diaphoresis, Denies dyspnea and Denies dyspnea on exertion Resp Denies cough, Denies dyspnea, Denies dyspnea on exertion and Denies wheezing GI Denies abdominal pain, Denies melena, Denies hematochezia, Denies constipation, Denies diarrhea and Denies loose stools Denies hematuria Musc Denies numbness and Denies tingling Skin/Breast Denies lesions Neuro Denies vertigo, Denies dizziness, Denies numbness and Denies tingling Psych Denies anxiety, Denies depression, Denies homicidal ideation, Denies suicidal ideation and Denies other (substance abuse) Aller/Immun Denies wheezing Physical exam (Primary Care) Vital Signs: Last Vital Signs Pulse 67 08/16/24 07:46 BP 130/80 08/16/24 07:46 Pulse Ox 98 08/16/24 07:46 Oxygen Delivery Method Room Air 08/16/24 07:46 BMI result Body Mass Index 27.6 Tobacco/Smoking Status: Tobacco use Status Tobacco use date assessed 08/16/24 08/16/24 07:48 Patient Tobacco Use Status Never used Tobacco 08/16/24 07:48 e-Cigarette/Vaping Use Never Used 08/16/24 07:48 PHQ-9: PHQ-9 Score PHQ-9: Total score 0 08/16/24 07:48 Depression Screening Interpretation: Negative Thrive Assessment: Date of Thrive Assessment Date Thrive assessed 12/08/23 08/16/24 07:48 Currently or been in a relationship where the following occur: I choose not to answer Const General: cooperative Nutritional Appearance: well nourished Orientation/consciousness: patient oriented x3 HENMT Head: Yes normal to inspection, Yes normocephalic and Yes atraumatic Ears: TM's normal bilaterally Eyes General: appearance normal, both eyes and all related structures Alignment and Position: alignment normal and position normal Neck Neck: Yes normal visual inspection, Yes no lymphadenopathy and Yes supple Resp Effort & Inspection: normal respiratory effort Auscultation: clear to auscultation bilaterally Cardio Rate: regular rate Rhythm: regular rhythm Heart sounds: S1 normal heart sound present, S2 normal heart sound present and no murmurs GI Palpation (GI): Soft to palpation and nontender Auscultation: normal bowel sounds Male General Exam: Yes normal external exam Penis: normal penis Scrotum: scrotum normal, testes descended bilaterally and no inguinal hernias Testes: no testicular mass Skin Other: fair skinned, left lateral upper torso with slightly raised flat discolored lesion (brownish/black region). Rashes: no rashes Neuro General: patient oriented x3, moves all extremities, no focal motor deficits and deep tendon reflexes 2+ bilaterally Romberg Test: Negative Psych Appearance: grossly normal Mental Status: mental status grossly normal Speech and movement: Normal speech and movement present Affect: normal affect Attitude: cooperative Thought process: Normal thought process present Thought content: Normal thought content present Insight: Good insight present (Psych) Judgement: Good judgement present (Psych) Assessment and Plan Assessment & Plan (1) Skin lesion: Code(s): L98.9 - Disorder of the skin and subcutaneous tissue, unspecified Plan: Referred to derm (2) Physical exam: Code(s): Z00.00 - Encounter for general adult medical examination without abnormal findings Plan: Labs already performed (3) Diabetes: Code(s): E11.9 - Type 2 diabetes mellitus without complications Plan: Microalbumin ordered Plan The patient agreed to the use of a medical cash poster for this encounter. Scribed for WILLA Simms- by Janny Vega medical cash poster, on 08/16/2024 at 07:50 EST. Orders: Orders Complete Blood Count Auto Diff Today D64.9 - Anemia, unspecified Immunofixation Pnl, Serum Today D64.9 - Anemia, unspecified Protein Electrophoresis, Serum Today D64.9 - Anemia, unspecified Microalbumin, Random (w Creat) Today E11.9 - Type 2 diabetes mellitus without complications Referrals Dermatology Referral L98.9 - Disorder of the skin and subcutaneous tissue, unspecified Coding Level of Care Code Est Pt Prev Care >65y(91765) Diagnoses Skin lesion L98.9 Physical exam Z00.00 Diabetes E11.9 Additional Codes SAMANTHA-7 Assessment Billing - SAMANTHA-7 Assessment Tool: SAMANTHA-7 Assessment [id number] ([id number])
== END 2024-08-16 08:09 | disposition home or self-care (01) ==
PROVIDERS: PCP Nurse Practitioner Family; Visit Provider Nurse Practitioner Family
DX: L98.9 Disorder of the skin and subcutaneous tissue, unspecified (principal); Z00.00 Encounter for general adult medical examination without abnormal findings; E11.9 Type 2 diabetes mellitus without complications

== ENCOUNTER → 2024-08-16 07:39 | Outpatient (BNVA) | payer MEDICARE, SELFPAY | PROVIDERS: PCP Nurse Practitioner Family; Visit Provider Nurse Practitioner Family | DX: Z00.01 Encounter for general adult medical examination with abnormal findings (principal); D64.9 Anemia, unspecified; E11.9 Type 2 diabetes mellitus without complications | CPT/HCPCS: 96127 ==

== ENCOUNTER 2025-01-12 08:41 | Outpatient (REF) | payer MEDICARE, SELFPAY ==
[2025-01-12 11:00] LABS: MANUAL DIFF FLAG NO
[2025-01-12 11:12] LABS: Basophils Percent Auto 0.7 % (0-2); Eosinophils Absolute Auto 0.2 X10*3/uL (0.0-0.4); Eosinophils Percent Auto 2.6 % (0-4); Hematocrit 37.7 % (42.0-52.0); Hemoglobin 12.7 g/dl (14.0-18.0); Imm Gran Abs Auto 0.02 X10*3/uL (0.00-0.03); Imm Gran Pct Auto 0.3 % (0.0-0.4); Lymphocytes Percent Auto 17.5 % (20-40); Mean Corpuscular HGB Conc 33.7 g/dl (31.0-36.0); Mean Corpuscular Hemoglobin 28.9 pg (27.0-33.0); Mean Corpuscular Volume 85.9 fL (80.0-98.0); Mean Platelet Volume 12.1 fL (9.4-12.4); Monocytes Absolute Auto 0.6 X10*3/uL (0.1-1.2); Monocytes Percent Auto 9.6 % (2-11); Neutrophils Percent Auto 69.3 % (45-73); Platelet Count 222 X10*3/uL (160-400); Red Blood Count 4.39 X10*6/uL (4.60-5.80); Red Cell Distribution Width 13.4 % (11.0-16.0); White Blood Count 5.7 X10*3/uL (4.8-10.8)
[2025-01-12 11:56] LABS: Creatinine Urine 44.89 mg/dL; Microalbumin Urine < 5.0 mg/L
[2025-01-15 15:14] LABS: IgA 180 mg/dL (70-320); IgG 605 mg/dL (600-1540); IgM 154 mg/dL (50-300)
[2025-01-15 22:49] LABS: Prot Elec - Albumin 4.6 g/dL (3.8-4.8); Prot Elec - Alpha1 0.3 g/dL (0.2-0.3); Prot Elec - Alpha2 0.8 g/dL (0.5-0.9); Prot Elec - Beta 1 0.5 g/dL (0.4-0.6); Prot Elec - Beta 2 0.3 g/dL (0.2-0.5); Prot Elec - Gamma 0.6 g/dL (0.8-1.7); Prot Elec - Total Protein 7.1 g/dL (6.1-8.1)
== END 2025-01-12 08:42 | disposition home or self-care (01) ==
LOC: HO.WFDLDS 08:41
PROVIDERS: Visit Provider Nurse Practitioner Family
DX: D64.9 Anemia, unspecified (principal); E11.9 Type 2 diabetes mellitus without complications
CPT/HCPCS: 36415; 82570; 82784; 84165; 85025; 86334

== ENCOUNTER 2025-02-21 09:48 | Outpatient (AMB) | payer MEDICARE, SELFPAY ==
[2025-02-21 10:01] VITALS: BP 138/82; PULSE 73; RESP 16; O2SAT 97; BMI 28.0
--- NOTE | 2025-02-21 10:01 | MHC.PC.OV ---
Vital Signs 02/21/25 10:01 Height 5 ft 11 in Weight 201 lb 2 oz BMI 28.0 BP 138/82 Blood Pressure Location Lt brachial Position Sitting Respiration 16 Pulse 73 Pulse Source Pulse Oximeter Pulse Oximetry (%) 97 Oxygen Delivery Method Room Air Intake Visit Reasons: 6 months f/up Intake Note: Pt is here today for 6 month follow up. Allergies No Known Allergies Allergy (Verified 02/21/25 10:38) Medication List - Last Reconciled 02/21/25 by JOSE Estrada alcohol swabs 1 pad topical BID 60 days blood sugar diagnostic ([employer]ker TranslationsTouch Ultra Test strips) Use to check blood sugar twice daily: once fasting in am and random during day blood-glucose meter (Micrimauch Ultra2 Meter) Use to check blood sugar twice daily: once fasting in am and random during day diltiazem HCl CD (Cartia XT) 240 mg PO DAILY lancets (Straker TranslationsTouch Delica Lancets) Use to check blood sugar twice daily: once fasting in am and random during day lisinopril 40 mg PO DAILY meloxicam 15 mg PO DAILY PRN 14 days metformin 1,000 mg PO BID 90 days pioglitazone 30 mg PO DAILY 90 days rosuvastatin 5 mg PO DAILY vitamin B complex (B Complex-Vitamin B12 tablet) 1 tab PO DAILY Tobacco use date assessed: 02/21/25 Fall risk assessment: No Falls in past year Last assessed Fall Risk: 02/21/25 Dental Screening Dental Screen Date: 02/21/25 Did you have a dental visit in the last 12 months?: Yes Did you have a dental problem in the last 6 months where you did not have access to dental care?: No Was dental information given to patient?: Patient has dentist HPI 6 months f/up HPI Details Chief Complaint Follow-up for diabetes management. History of Present Illness The patient is a 69-year-old male presenting for a follow-up on diabetes management. The patient denies experiencing any neuropathic symptoms or chest pain. His hemoglobin A1c level was recorded at 8.1 today. He does not wish to start any new diabetes medications currently but is open to reconsideration if future A1c levels remain elevated. His foot sensation remains intact, verified through a monofilament test, indicating preserved peripheral sensory function. Social History Health Maintenance - Today's hemoglobin A1c level: 8.1 Review of Systems - Cardiovascular: Denies chest pain. - Respiratory: Denies shortness of breath. - Neurological: Denies any neuropathy. Physical Exam General: Cooperative, healthy appearing, comfortable, no acute distress and well developed Orientation: Patient oriented x3 Limitations: No limitations Head: Normal to inspection Ears: Hearing grossly normal bilaterally Nose: Normal external nose present Face and sinus: Normal facial exam Eyes: Appearance normal, both eyes and all related structures Neck: Normal visual inspection and Yes full ROM Respiratory: Normal respiratory effort and able to speak in complete sentences. Clear to auscultation bilaterally Cardiovascular: Regular rate and rhythm. Normal S1 and S2 GI: Normal to inspection. Soft to palpation and nontender Skin: No rashes or lesions noted Neuro: Patient oriented x3 Extremities: Normal to inspection, positive sensation and use of monofilament feet are intact Results - Labs: Hemoglobin A1c level today is 8.1. Plan 1. 1, the patient prefers no new medications. I suggested monitoring the next A1c level for further evaluation and agreed to discuss new medication options if necessary. The patient's foot sensory evaluation showed intact sensation; thus, no neuropathic concerns are presently noted.: Discussion Notes We discussed the current management of the patient's diabetes, with hemoglobin A1c at 8.1. He has opted against starting new medications immediately but is willing to reassess this plan following his next A1c result. I explained the importance of continuing his current lifestyle interventions and diabetes monitoring. We also discussed future steps contingent on A1c outcomes, ensuring he is fully informed of potential options. No immediate changes were made regarding neuropathy as sensation remains intact. Follow-up was planned based on A1c trajectory. Patient Instructions - Continue regular monitoring of blood sugar levels. - Maintain current diabetes lifestyle interventions. - Be open to reassessing treatment options if future A1c levels remain elevated. - Report any new symptoms, especially related to neuropathy or foot sensation. - Schedule and complete routine follow-up appointments. [facility] Surgical History History of cataract surgery Family History Father COPD (chronic obstructive pulmonary disease) Mother Cancer Brother Liver cancer Sister Breast cancer Son No problems noted. Daughter No problems noted. Social History Housing: Other Patient Tobacco Use Status: Never used Tobacco e-Cigarette/Vaping Use: Never Used Second Hand Smoke Exposure: No service: No Current occupational status: retired Cognitive needs: No Hearing needs: No Vision needs: No Questionnaire PHQ-9 Over the last 2 weeks, how often have you been bothered by any of the following problems? 1. Little interest or pleasure in doing things: not at all 2. Feeling down, depressed, or hopeless: not at all 3. Trouble falling or staying asleep, or sleeping too much: not at all 4. Feeling tired or having little energy: not at all 5. Poor appetite or overeating: not at all 6. Feeling bad about yourself - or that you are a failure or have let yourself or your family down: not at all 7. Trouble concentrating on things, such as reading the newspaper or watching television: not at all 8. Moving or speaking so slowly that other people could have noticed. Or the opposite - being so fidgety or restless that you have been moving around a lot more than usual: not at all 9. Thoughts that you would be better off or of hurting yourself in some way: not at all Total score: 0 Depression Screening Interpretation: Negative Depression Screening Done: Yes 28121 - PHQ-9 Billing: Yes Source: Developed by Drs. Gonzalo Calvillo, Taty Dang, Rich Cherry and colleagues, with an educational brittany from [employer]. Thrive Questionnaire Date Thrive assessed: 02/21/25 I am a: Patient What is your living situation today?: I have a steady place to live Within the past 12 months, did the food you bought not last and you didn't have the money to get more?: I choose not to answer this question Within the past 12 months, did you worry whether your food would run out before you got money to buy more?: Never true Do you have trouble paying for medicines?: No Do you have trouble getting transportation to medical appointments?: No Do you have trouble paying your heating and electricity bill?: No Do you have trouble taking care of your child, family member or friend?: I choose not to answer this question Do you have trouble with day-to-day activities such as bathing, preparing meals, shopping, managing finances, etc.?: No Are you currently unemployed and looking for a job?: I choose not to answer this question Are you interested in more education?: No Please select the resources that you would like help with: None Currently or been in a relationship where the following occur: I choose not to answer THRIVE Score: 0 AUDIT C Alcohol Use Questionnaire (AUDIT-C) 1. How often do you have a drink containing alcohol?: Monthly or less 2. How many drinks containing alcohol do you have on a typical day when you are drinking?: 3 or 4 3. How often do you have six or more drinks on one occasion?: Never Total Score: 2 Score Reviewed/Action Taken: Yes SAMANTHA-7 AMB Questionnaire SAMANTHA-7 Date SAMANTHA - 7 assessed: 02/21/25 Feeling nervous, anxious, or on edge: 0 = Not at all Not being able to stop or control worryin = Not at all Worrying too much about different things: 0 = Not at all Trouble relaxin = Not at all Being so restless that it is hard to sit still: 0 = Not at all Becoming easily annoyed or irritable: 0 = Not at all Feeling afraid as if something awful might happen: 0 = Not at all Total SAMANTHA-7 score (0-4 normal; 5-9 mild; 10-14 moderate; 15-21 severe): 0 Source: Developed by Drs. Gonzalo Calvillo, Taty Dang, Rich Cherry and colleagues, with an educational brittany from [employer]. SAMANTHA-7 Assessment Billing SAMANTHA-7 Assessment Tool: SAMANTHA-7 Assessment 14592 Physical exam (Primary Care) Vital Signs: Last Vital Signs Pulse 73 02/21/25 10:01 Resp 16 02/21/25 10:01 BP 138/82 02/21/25 10:01 Pulse Ox 97 02/21/25 10:01 Oxygen Delivery Method Room Air 02/21/25 10:01 BMI result Body Mass Index 28.0 Tobacco/Smoking Status: Tobacco use Status Tobacco use date assessed 02/21/25 02/21/25 10:21 Patient Tobacco Use Status Never used Tobacco 02/21/25 10:03 e-Cigarette/Vaping Use Never Used 02/21/25 10:03 PHQ-9: PHQ-9 Score PHQ-9: Total score 0 02/21/25 10:24 Depression Screening Interpretation: Negative Thrive Assessment: Date of Thrive Assessment Date Thrive assessed 02/21/25 02/21/25 10:24 Currently or been in a relationship where the following occur: I choose not to answer Results AMB Hemoglobin A1c AMB Hemoglobin A1c 8.1 % Last Edit by Emmanuel Yin CMA on 02/21/25 10:36 Results Reviewed Results Reviewed: Laboratory Last Values Hgb A1c (Clinic) 8.1 % (4.0-6.0) H 02/21/25 10:36 Coding Level of Care Code Est Pt Level 3 (84412) Diagnoses Diabetes E11.9 Screening PSA (prostate specific antigen) Z12.5 Additional Codes SAMANTHA-7 Assessment Billing - SAMANTHA-7 Assessment Tool: SAMANTHA-7 Assessment 14840 ([id number]) PHQ-9 - 43287 - PHQ-9 Billing: Yes ([id number]) Assessment & Plan Assessment & Plan (1) Diabetes: Code(s): E11.9 - Type 2 diabetes mellitus without complications Category: Medical (2) Screening PSA (prostate specific antigen): Code(s): Z12.5 - Encounter for screening for malignant neoplasm of prostate Category: Medical Plan . Orders: Orders Complete Blood Count Auto Diff Today E11.9 - Type 2 diabetes mellitus without complications Comprehensive [place]. Panel Fast Today E11.9 - Type 2 diabetes mellitus without complications TSH reflex Free T4 Today E11.9 - Type 2 diabetes mellitus without complications AMB Hemoglobin A1c Today Z13.9 - Encounter for screening, unspecified UA CC w/rflx Micro + Cult Today E11.9 - Type 2 diabetes mellitus without complications Lipid Panel Today E11.9 - Type 2 diabetes mellitus without complications Prostate Specific Antigen Scr Today Z12.5 - Encounter for screening for malignant neoplasm of prostate AMB EKG-In Office Today E11.9 - Type 2 diabetes mellitus without complications
== END 2025-02-21 11:12 | disposition home or self-care (01) ==
LOC: HO.HMCC 09:49
PROVIDERS: PCP Nurse Practitioner Family; Visit Provider Nurse Practitioner Family
DX: E11.9 Type 2 diabetes mellitus without complications (principal); Z12.5 Encounter for screening for malignant neoplasm of prostate; Z13.9 Encounter for screening, unspecified

== ENCOUNTER → 2025-02-21 09:48 | Outpatient (BNVA) | payer MEDICARE, SELFPAY | PROVIDERS: PCP Nurse Practitioner Family; Visit Provider Nurse Practitioner Family | DX: E11.9 Type 2 diabetes mellitus without complications (principal) | CPT/HCPCS: 83036; 96127; 99212 ==

== ENCOUNTER → 2025-04-02 13:39 | Outpatient (REF) | payer MEDICARE, SELFPAY ==
--- NOTE | 2025-04-02 13:43 | CA_ITS ---
Transthoracic Echocardiogram Patient (Last, First, Middle): Alejandro Perez R Gender: Male Date of : 1955 Age: 69 Procedure Date: 04/02/2025 Procedure Type: Transthoracic Echocardiogram Location: OP Height: 180. cm Weight: 88.45 kg BSA: 2.08 m2 Heart Rate: 65 bpm BP: 150 / 80 mmHg Stitch Cleaner: FAITH Referring MD: Kp Ortez [facility] Symptoms: I45.10 - Unspecified right bundle-branch block Study Quality: Adequate ECG Rhythm: Sinus Conclusions: - The left ventricular systolic function is normal. The calculated ejection fraction is 62% by biplane method. - No obvious valvular pathology seen on this study. Findings Left Ventricle Normal left ventricular cavity size. The left ventricular systolic function is normal. The calculated ejection fraction is 62% by biplane method. There is no evidence of regional wall motion abnormalities. Diastolic function is normal for age. There is mild septal asymmetric hypertrophy. Right Ventricle Normal right ventricular cavity size. There is low normal right ventricular systolic function. Atria The left atrium is mildly dilated. The right atrium is normal in size. Aortic Valve There is a normal trileaflet aortic valve. There is mild calcification of the aortic valve. There is no aortic valve stenosis. There is no aortic valve regurgitation. Mitral Valve The mitral valve appears normal. There is no mitral valve regurgitation. There is no mitral valve stenosis. Pulmonic Valve The pulmonic valve is likely normal. Tricuspid Valve There is trace tricuspid valve regurgitation. There is no evidence of pulmonary hypertension. Great Vessels The asc aorta and aortic arch are normal in size. Venous The inferior vena cava is mildly dilated and collapses greater than 50% with inspiration. Pericardium/Pleural There is no evidence of pericardial effusion. Prior Study Comparison No prior study available for comparison. Recommendations, Care & Conclusions No obvious valvular pathology seen on this study. Measurements 2D Linear Measurements IVSd: 0.88 0.6-0.9/0.6-1.0 cm LVIDd: 4.59 3.9-5.3/4.2-5.9 cm LVIDd Index: 2.21 2.4-3.2/2.2-3.1 cm/m2 LVIDs: 2.69 2.0-3.6 cm LVPWd: 1.02 0.7-1.1 cm LA Diam: 4.10 2.7-3.8/3.0-4.0 cm LAIDs Index: 1.97 1.5-2.3 cm/m2 LV Mass: 183.85 67-162/88-224 g LV Mass Index: 88.39 43-95/49-115 g/m2 LVOT Diam: 2.30 3.0+(-)1.3 cm 2D Systolic Function EF 4C: 55.60 >55% EF 2C: 65.10 >55% EF BiP: 61.50 >55% Mitral Valve MV Pk E: 0.98 MV PK A: 0.84 MV Decel Time: 206.00 E/A: 1.20 E'Lateral: 10.30 E'Medial: 8.92 E/E' Med: 11.00 E/E' Lat: 9.50 PHT: 60.00 MVA PHT: 3.67 Decel Lanier: 4.76 Aortic Valve AoV Pk Jaycob: 1.42 AoV Mn Jay[place]ob: 0.99 AoV VTI: 0.33 AoV Pk Grad: 8.00 Aov Mn Grad: 4.00 KRYSTEN Cont.VTI: 2.60 LVOT LVOT Pk Jaycob: 0.89 LVOT Mn Jay[place]ob: 0.60 LVOT VTI: 0.21 LVOT Pk Grad: 3.00 LVOT Mn Grad: 2.00 LVOT Diam: 2.30 LVOT Area: 4.15 Diastolic Function MV Pk E: 0.98 MV Pk A: 0.84 E/A: 1.20 E'Medial: 8.92 E/E' Med: 11.00 E' Laterial: 10.30 E/E' Lat: 9.50 Right Ventricle TAPSE (mm): 23.40 TVS' Jaycob: 9.36 Tricuspid Valve RA Press: 3.00 Great Vessels Aorta Sinus of Valsalva: 3.40 2.0-3.5 cm Ao Asc: 3.50 2.1-3.4 cm Ao Arch: 3.20 Pulmonary Valve PV Pk Jaycob: 1.38 Peak PV Grad: 8.00 Updated in Other Vendor System with Status of Final Tae Freitas MD electronically signed on 04/03/2025 12:29:05 PM with status of Final
== END ==
LOC: HO.CARD 13:39
PROVIDERS: PCP Nurse Practitioner Family; Visit Provider Nurse Practitioner Family
DX: I45.10 Unspecified right bundle-branch block (principal)
CPT/HCPCS: 93306

== ENCOUNTER → 2025-04-02 13:43 | Outpatient (BNV) | payer MEDICARE, SELFPAY | PROVIDERS: PCP Nurse Practitioner Family; Visit Provider Internal Medicine | DX: I42.2 Other hypertrophic cardiomyopathy (principal); I35.8 Other nonrheumatic aortic valve disorders | CPT/HCPCS: 93306 ==

== ENCOUNTER 2025-07-11 15:18 | Outpatient (AMB) | payer MEDICARE, SELFPAY ==
[2025-07-11 15:20] VITALS: BP 122/64; PULSE 70; RESP 16; TEMP 36.8; O2SAT 95; BMI 27.1
--- NOTE | 2025-07-11 15:20 | A.OFFPC_ITS ---
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 Cell Room Required: No Accompanied by: Self / Same As Patient Allergies No Known Allergies Allergy (Verified 07/11/25 16:02) Medication List - Last Reconciled 07/11/25 by WILLA Estrada- alcohol swabs 1 pad topical BID 60 days blood sugar diagnostic ([employer] Ultra Test strips) Use to check blood sugar twice daily: once fasting in am and random during day blood-glucose meter ([employer] Ultra2 Meter) Use to check blood sugar twice daily: once fasting in am and random during day diltiazem HCl CD (Cartia XT) 240 mg PO DAILY lancets (Saunders SolutionsTouch Delica Lancets) Use to check blood sugar twice daily: once fasting in am and random during day lisinopril 40 mg PO DAILY meloxicam 15 mg PO DAILY PRN 14 days metformin 1,000 mg PO BID pioglitazone 30 mg PO DAILY 90 days rosuvastatin 5 mg PO DAILY vitamin B complex (B Complex-Vitamin B12 tablet) 1 tab PO DAILY Tobacco use date assessed: 07/11/25 Fall risk assessment: No Falls in past year Last assessed Fall Risk: 07/11/25 Dental Screening Dental Screen Date: 02/21/25 HPI PE HPI Details History of Present Illness The patient is a 69-year-old male presenting for a physical examination. He has a history of diabetes mellitus, for which comprehensive laboratory tests including hemoglobin A1c and microalbumin are planned to monitor his condition. During the examination, the patient declined any form of colon cancer screening, including Cologuard. He reports no neuropathy, stating his feet are fine. The physical examination revealed two papular lesions on the medial right lower extremity, which are non-tender to touch. Additionally, a seborrheic keratosis was noted on the left lateral flank, characterized by a slightly raised lesion with darker and white spooler pigmentation. Health Maintenance - Annual eye exams recommended for diabe festus management - Prostate-specific antigen (PSA) test o rdered Social History Review of Systems - Neurological: Denies neuropathy, repor ts feet are fine -denies any neuropathy, polyuria, polydi psia, fevers, chills, abd pain, blood in stool, constipation or diarrhea. Denies any si or hi Physical Exam General: Cooperative, healthy appearing, comfortable, no acute distress and well developed Orientation: Patient oriented x3 Limitations: No limitations Head: Normal to inspection Ears: Hearing grossly normal bilaterally Nose: Normal external nose present Face and sinus: Normal facial exam Eyes: Appearance normal, both eyes and all related structures Neck: Normal visual inspection and Yes full ROM Respiratory: Normal respiratory effort and able to speak in complete sentences. Clear to auscultation bilaterally Cardiovascular: Regular rate and rhythm. Normal S1 and S2 GI: Normal to inspection. Soft to palpation and nontender : Testicles without masses/lesions and no hernias appreciated Skin: Two lesions, more papular, on the medial right lower extremity, more proximal, and one just distal of that. Not tender to touch. Seborrheic keratosis on the left lateral region, almost flank region, slightly raised, darker pigmentation with white spooler pigmentation noted. Neuro: Patient oriented x3 Extremities: Normal to inspection except for lesions on the right lower extremit y as noted above. Results Plan The plan includes obtaining laboratory tests to monitor the patient's diabetes, specifically hemoglobin A1c and microalbumin levels. A referral to dermatology is planned for further evaluation of the seborrheic keratosis. Preventative care measures include reinforcing the importance of annual eye exams for diabetes management and conducting a prostate-specific antigen PSA) test. Discussion Notes I discussed with the patient the importance of regular monitoring of his diabetes through laboratory tests, including hemoglobin A1c and microalbumin. We also talked about the need for a dermatology referral to evaluate the seborrheic keratosis. Additionally, I emphasized the significance of annual eye exams and the completion of a prostate-specific antigen (PSA) test as part of his preventative care. Patient Instructions - Schedule and attend annual eye exams t o monitor diabetes. - Follow up with dermatology for evaluat ion of skin lesions. - Complete the prostate-specific antigen (PSA) test as ordered. [facility] Surgical History History of cataract surgery Family History Father COPD (chronic obstructive pulmonary disease) Mother Cancer Brother Liver cancer Sister Breast cancer Son No problems noted. Daughter No problems noted. Social History Housing: Other Patient Tobacco Use Status: Never used Tobacco e-Cigarette/Vaping Use: Never Used Second Hand Smoke Exposure: No service: No Current occupational status: retired Cognitive needs: No Hearing needs: No Vision needs: No Questionnaire PHQ-9 Over the last 2 weeks, how often have you been bothered by any of the following problems? 1. Little interest or pleasure in doing things: not at all 2. Feeling down, depressed, or hopeless: not at all 3. Trouble falling or staying asleep, or sleeping too much: not at all 4. Feeling tired or having little energy: not at all 5. Poor appetite or overeating: not at all 6. Feeling bad about yourself - or that you are a failure or have let yourself or your family down: not at all 7. Trouble concentrating on things, such as reading the newspaper or watching television: not at all 8. Moving or speaking so slowly that other people could have noticed. Or the opposite - being so fidgety or restless that you have been moving around a lot more than usual: not at all 9. Thoughts that you would be better off or of hurting yourself in some way: not at all Total score: 0 Depression Screening Interpretation: Negative Depression Screening Done: Yes 97512 - PHQ-9 Billing: Yes Source: Developed by Drs. Gonzalo Calvillo, Taty Dang, Rich Cherry and colleagues, with an educational brittany from [employer]. Thrive Questionnaire Date Thrive assessed: 02/21/25 I am a: Patient What is your living situation today?: I have a steady place to live Within the past 12 months, did the food you bought not last and you didn't have the money to get more?: I choose not to answer this question Within the past 12 months, did you worry whether your food would run out before you got money to buy more?: Never true Do you have trouble paying for medicines?: No Do you have trouble getting transportation to medical appointments?: No Do you have trouble paying your heating and electricity bill?: No Do you have trouble taking care of your child, family member or friend?: I choose not to answer this question Do you have trouble with day-to-day activities such as bathing, preparing meals, shopping, managing finances, etc.?: No Are you currently unemployed and looking for a job?: I choose not to answer this question Are you interested in more education?: No Please select the resources that you would like help with: None Currently or been in a relationship where the following occur: I choose not to answer THRIVE Score: 0 SAMANTHA-7 AMB Questionnaire SAMANTHA-7 Date SAMANTHA - 7 assessed: 07/11/25 Feeling nervous, anxious, or on edge: 0 = Not at all Not being able to stop or control worryin = Not at all Worrying too much about different things: 0 = Not at all Trouble relaxin = Not at all Being so restless that it is hard to sit still: 0 = Not at all Becoming easily annoyed or irritable: 0 = Not at all Feeling afraid as if something awful might happen: 0 = Not at all Total SAMANTHA-7 score (0-4 normal; 5-9 mild; 10-14 moderate; 15-21 severe): 0 Source: Developed by Drs. Gonzalo Calvillo, Taty Dang, Rich Cherry and colleagues, with an educational brittany from [employer]. SAMANTHA-7 Assessment Billing SAMANTHA-7 Assessment Tool: SAMANTHA-7 Assessment 71493 Physical exam (Primary Care) Vital Signs: Last Vital Signs Temp 98.2 F 07/11/25 15:20 Pulse 70 07/11/25 15:20 Resp 16 07/11/25 15:20 BP 122/64 07/11/25 15:20 Pulse Ox 95 07/11/25 15:20 Oxygen Delivery Method Room Air 07/11/25 15:20 BMI result Body Mass Index 27.1 Tobacco/Smoking Status: Tobacco use Status Tobacco use date assessed 07/11/25 07/11/25 15:26 Patient Tobacco Use Status Never used Tobacco 07/11/25 15:26 e-Cigarette/Vaping Use Never Used 07/11/25 15:26 PHQ-9: PHQ-9 Score PHQ-9: Total score 0 07/11/25 15:26 Depression Screening Interpretation: Negative Thrive Assessment: Date of Thrive Assessment Date Thrive assessed 02/21/25 07/11/25 15:26 Currently or been in a relationship where the following occur: I choose not to answer Coding Level of Care Code Est Pt Level 3 (52624) Est Pt Prev Care >65y(62794) Diagnoses Diabetes E11.9 Physical exam Z00.00 Screening PSA (prostate specific antigen) Z12.5 Skin lesion L98.9 Additional Codes SAMANTHA-7 Assessment Billing - SAMANTHA-7 Assessment Tool: SAMANTHA-7 Assessment 96132 ([id number]) PHQ-9 - 74473 - PHQ-9 Billing: Yes ([id number]) Assessment & Plan Assessment & Plan (1) Diabetes: Code(s): E11.9 - Type 2 diabetes mellitus without complications Category: Medical (2) Physical exam: Code(s): Z00.00 - Encounter for general adult medical examination without abnormal findings Category: Medical (3) Screening PSA (prostate specific antigen): Code(s): Z12.5 - Encounter for screening for malignant neoplasm of prostate Category: Medical (4) Skin lesion: Code(s): L98.9 - Disorder of the skin and subcutaneous tissue, unspecified Category: Medical Plan . Orders: Orders Comprehensive [place]. Panel Fast Today E11.9 - Type 2 diabetes mellitus without complications, Z00.00 - Encounter for general adult medical examination without abnormal findings UA CC w/rflx Micro + Cult Today E11.9 - Type 2 diabetes mellitus without c omplications, Z00.00 - Encounter for general adult medical examination without abnormal findings Prostate Specific Antigen Scr Today Z12.5 - Encounter for screening for jennifer gnant neoplasm of prostate Hemoglobin A1c Today E11.9 - Type 2 diabetes mellitus without complications Complete Blood Count Auto Diff Today E11.9 - Type 2 diabetes mellitus without complications, Z00.00 - Encounter for general adult medical examination without abnormal findings TSH reflex Free T4 Today E11.9 - Type 2 diabetes mellitus without complications, Z00.00 - Encounter for general adult medical examination without abnormal findings Lipid Panel Today E11.9 - Type 2 diabetes mellitus without complications, Z00.00 - Encounter for general adult medical examination without abnormal findings Microalbumin, Random (w Creat) Today E11.9 - Type 2 diabetes mellitus without complications, Z00.00 - Encounter for general adult medical examination without abnormal findings Referrals Dermatology Referral L98.9 - Disorder of the skin and subcutaneous tissue, unspecified
--- OUTSIDE RECORDS SUMMARY | 2025-07-11 15:21 | XMS_ITS | Patient Health Record ---
Author Organization [facility] Address [address] [place] [address] Care Team Providers Care Junior Java Developer Name Role Phone Duc Riley M.D. Primary Care Provider Henrietta Gonzalo Genao Unavailable [phone] Reason For Referral No Information Medications Medication SIG (Take, Route, Fr equency, Duration) Notes Start Date End Date Status dilTIAZem HCl 120 MG 1 tablet before ottoniel ls Orally Three times a day Active metFORMIN HCl 1000 MG 1 tablet with meal s Orally Twice a day Active Lisinopril 40 MG 1 tablet Orally Once a day Active MoviPrep 100 GM as directed Orally a s directed for 1 dose 02/14/2015 Active Problems Problem Type SNOMED Code ICD Code Onset Dates Problem Status W/U Status Risk Notes Problem Colon cancer screening (768674957) Colon cancer screening (V76.51) Active confirmed Problem History of polyp of colon (284858040) H/O adenomatous polyp of colon (V12.72) Active confirmed Problem Long-term drug therapy (392228504) Encounter for long-term (current) use of other high-risk medications (V58.69) Active confirmed Plan Of Treatment Future Test Test Name Order Date COLONOSCOPY 02/13/2015 Insurance Providers Payer Name Payer Address Payer Phone Subscriber Number Group Number Insured Name Patient Relationship to Insured Coverage Start Date Coverage End Date [facility] [address] [place], [place] [phone] [id number] PHYLLISERICK JUAREZ Self - patient is the insured Medical (General) History Medical History History ICD Code NIDDM hypertension Small tubular adenomas remov ed in 11/2008 during a screening colonoscopy-he was also noted to have some sigmoid diverticulosis and small internal hemorrhoids Denies [place],CVA,Lung disease,renal disease
--- OUTSIDE RECORDS SUMMARY | 2025-07-11 15:21 | XMS_ITS | Patient Health Record ---
Author Organization [facility] Address [address] [place] [address] Care Team Providers Care Visual Merchandising Specialist Name Role Phone Osvaldo VELEZ, [phone] [facility] Pro vider Unavailable Burt Henson Unavailable [phone] Reason For Referral No Information Medications Medication SIG (Take, Route, Frequency, Duration) Notes Start Date End Date Status Extra-Depth Diabetic Shoes with 3 Pair Custom heat-molded multi-density innersoles . 1pair shoes/3sets inserts . .; Duration: 1 year 07/05/2013 Active metFORMIN HCl 500 MG 1 tablet with meals Orally once a day; Duration: 30 day(s) Active Physical Therapy . . . 2-3x/week; Durat ion: 3-4 weeks 11/03/2013 Active Lisinopril 10 MG 1 tablet Orally Once a day; Duration: 30 day(s) Active Problems Problem Type SNOMED Code ICD Code Onset Dates Problem Status W/U Status Risk Notes Problem Bursitis (70853104) Bursitis (727.3) Active confirmed Problem Calcaneal spur (05912466) Calcaneal spur (726.73) Active confirmed Problem Type II diabetes mellitus without complication (030212445) Diabetic - NIDDM (250.00) Active confirmed Problem Hammer toe (371861229) Hammer toe (735.4) Active confirmed Problem Myositis (69761659) Myositis (729.1) Active confirmed Problem Onychomycosis (109496432) Onychomycosis (110.1) Active confirmed Problem Pain in limb (05346953) Pain in Limb (729.5) Active confirmed Problem Plantar fasciitis (277136707) Plantar Fasciitis (728.71) Active confirmed Plan Of Treatment Pending Test Test Name Order Date X ray : Foot, right 3V 07/05/2013 [id number] NAIL, 6 OR MORE 09/08/2011 [id number] NAIL, 6 OR MORE 01/05/201252277,[id number] TENDON SHEATH/LIGAMENT 1 50,[id number] TENDON SHEATH/LIGAMENT 1 11/29/2012 [id number] TENDON SHEATH/LIGAMENT 1 01/04/2013 Insurance Providers Payer Name Payer Address Payer Phone Subscriber Number Group Number Insured Name Patient Relationship to Insured Coverage Start Date Coverage End Date [facility] All Others [address] [place] [address] [phone] [id number] Alejandro Perez Self - patient is the insured Medical (General) History Medical History History ICD Code hypertension diabetic Surgical History Surgery Date(Month/Year) cataracts OU 2009
== END 2025-07-11 17:00 | disposition home or self-care (01) ==
LOC: HO.HMCC 15:19
PROVIDERS: PCP Nurse Practitioner Family; Visit Provider Nurse Practitioner Family
DX: Z00.00 Encounter for general adult medical examination without abnormal findings (principal); E11.9 Type 2 diabetes mellitus without complications; Z12.5 Encounter for screening for malignant neoplasm of prostate; L98.9 Disorder of the skin and subcutaneous tissue, unspecified

== ENCOUNTER → 2025-07-11 15:18 | Outpatient (BNVA) | payer MEDICARE, SELFPAY | PROVIDERS: PCP Nurse Practitioner Family; Visit Provider Nurse Practitioner Family | DX: Z00.00 Encounter for general adult medical examination without abnormal findings (principal); E11.9 Type 2 diabetes mellitus without complications; L98.9 Disorder of the skin and subcutaneous tissue, unspecified | CPT/HCPCS: 96127; 99212; 99397 ==

== ENCOUNTER 2025-07-13 07:32 | Outpatient (REF) | payer MEDICARE, SELFPAY ==
--- OUTSIDE RECORDS SUMMARY | 2025-07-13 07:34 | XMS_ITS | Patient Health Record ---
Author Organization [facility] Address [address] [place] [address] Care Team Providers Care Community Health Advisor Name Role Phone Osvaldo VELEZ, [phone] [place] [facility] Pro vider Unavailable Burt Henson Unavailable [phone] Reason For Referral No Information Medications Medication [...] Status W/U Status Risk Notes Problem Bursitis (17233622) Bursitis (727.3) Active confirmed Problem Calcaneal spur (49254420) Calcaneal spur (726.73) Active confirmed Problem Type II diabetes mellitus without complication (694280076) Diabetic - NIDDM (250.00) Active confirmed Problem Hammer toe (193327524) Hammer toe (735.4) Active confirmed Problem Myositis (75844945) Myositis (729.1) Active confirmed Problem Onychomycosis (841164495) Onychomycosis (110.1) Active confirmed Problem Pain in limb (92293758) Pain in Limb (729.5) Active confirmed Problem Plantar fasciitis (990365921) Plantar Fasciitis (728.71) Active confirmed Plan Of Treatment Pending Test Test Name Order Date X ray : Foot, right 3V 07/05/2013 [id number] NAIL, 6 OR MORE 09/08/2011 [id number] NAIL, 6 OR MORE 01/05/201242606,[id number] TENDON SHEATH/LIGAMENT 1 50,[id number] TENDON SHEATH/LIGAMENT 1 11/29/2012 [id number] TENDON SHEATH/LIGAMENT 1 01/04/2013 Insurance Providers Payer Name Payer Address Payer Phone Subscriber Number Group Number Insured Name Patient Relationship to Insured Coverage Start Date Coverage End Date [facility] All Others [address] [place] [address] [phone] [id number] Alejandro Perez Self - patient is the insured Medical (General) History Medical History History ICD Code hypertension diabetic Surgical History Surgery Date(Month/Year) cataracts OU 2009
--- OUTSIDE RECORDS SUMMARY | 2025-07-13 07:34 | XMS_ITS | Patient Health Record ---
Author Organization [facility] Address [address] [place] [address] Care Team Providers Care Fire Equipment Inspector Name Role Phone Duc Riley M.D. Primary Care Provider Henrietta Gonzalo Genao Unavailable [phone] Reason For Referral No Information Medications Medication [...] Status Risk Notes Problem Colon cancer screening (310679758) Colon cancer screening (V76.51) Active confirmed Problem History of polyp of colon (866324929) H/O adenomatous polyp of colon (V12.72) Active confirmed Problem Long-term drug therapy (698185474) Encounter for long-term (current) use of other high-risk medications (V58.69) Active confirmed Plan Of Treatment Future Test Test Name Order Date COLONOSCOPY 02/13/2015 Insurance Providers Payer Name Payer Address Payer Phone Subscriber Number Group Number Insured Name Patient Relationship to Insured Coverage Start Date Coverage End Date [facility] [address] [place], [place] [phone] [id number] PHYLLISERICK JUAREZ Self - patient is the insured Medical (General) History Medical History History ICD Code NIDDM hypertension Small tubular adenomas remov ed in 11/2008 during a screening colonoscopy-he was also noted to have some sigmoid diverticulosis and small internal hemorrhoids Denies [place],CVA,Lung disease,renal disease
[2025-07-13 11:16] LABS: MANUAL DIFF FLAG NO
[2025-07-13 11:19] LABS: Appearance Urine Clear; Glucose Urine UA Negative (Negative); PH 7.5 (5.0-9.0); Specific Gravity - Urine 1.010 (1.005-1.025)
[2025-07-13 11:24] LABS: Hematocrit 35.1 % (42.0-52.0); Hemoglobin 11.9 g/dl (14.0-18.0); Imm Gran Abs Auto 0.01 X10*3/uL (0.00-0.03); Imm Gran Pct Auto 0.2 % (0.0-0.4); Lymphocytes Absolute Auto 0.9 X10*3/uL (1.2-4.9); Mean Corpuscular HGB Conc 33.9 g/dl (31.0-36.0); Mean Corpuscular Hemoglobin 29.2 pg (27.0-33.0); Mean Corpuscular Volume 86.0 fL (80.0-98.0); NRBC Abs Auto 0.000 X10*3/uL (0.0-0.012); NRBC Pct Auto 0.0 /100WBC (0.0-0.2); Platelet Count 186 X10*3/uL (160-400); Red Blood Count 4.08 X10*6/uL (4.60-5.80); White Blood Count 4.7 X10*3/uL (4.8-10.8)
[2025-07-13 11:29] LABS: Hemoglobin A1C 166.5125 umol/L; Total Hemoglobin (HGBA1C) 3114.6371 umol/L
[2025-07-13 11:38] LABS: Alanine Aminotransferase 17 U/L (0-40); Albumin Level 4.6 g/dL (3.5-5.0); Alkaline Phosphatase 44 U/L (39-117); Anion Gap 12 (12-20); Aspartate Amino Transferase 27 U/L (5-37); Blood Urea Nitrogen 10 mg/dL (9-16); Calcium 9.2 mg/dL (8.4-10.2); Carbon Dioxide 25 mmol/L (22-29); Chloride 101 mmol/L (96-108); Cholesterol 108 mg/dL (<200); Estimated Glomerular Filt Rate > 60; HDL Cholesterol 63 mg/dL (>40); Potassium 4.6 mmol/L (3.3-5.1); Sodium 133 mmol/L (135-145); Total Protein 6.6 g/dL (6.5-8.0); Triglycerides 47 mg/dL (<150)
[2025-07-18 00:28] LABS: Kappa, Serum 139 mg/dL (176-443); Kappa/Lambda Ratio, Serum 1.85 (1.29-2.55); Lambda, Serum 75 mg/dL (91-240)
== END 2025-07-13 07:33 | disposition home or self-care (01) ==
LOC: HO.WFDLDS 07:32
PROVIDERS: Visit Provider Nurse Practitioner Family
DX: Z00.00 Encounter for general adult medical examination without abnormal findings (principal); E11.9 Type 2 diabetes mellitus without complications; D80.1 Nonfamilial hypogammaglobulinemia; Z12.5 Encounter for screening for malignant neoplasm of prostate
CPT/HCPCS: 36415; 80053; 80061; 81003; 82043; 82570; 83036; 83883; 84153; 84443; 85025

== ENCOUNTER → 2025-09-06 15:20 | Outpatient (BNV) | payer MEDICARE, SELFPAY | PROVIDERS: PCP Nurse Practitioner Family; Referring Provider Nurse Practitioner Family; Visit Provider Internal Medicine Medical Oncology | DX: D80.1 Nonfamilial hypogammaglobulinemia (principal) | CPT/HCPCS: 99204 ==